=== PATIENT | female | born 2005 | race Two or more races ===

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

== ENCOUNTER 2024-01-06 13:52 | Emergency (ER) | payer MEDICAID, SELFPAY ==
[2024-01-06 14:10] VITALS: BP 156/91; PULSE 96; RESP 20; TEMP 36.6; O2SAT 100; BMI 34.3
--- NOTE | 2024-01-06 14:29 | ED_ITS ---
HPI - Female Genitourinary General Chief complaint: Urogenital-Female Stated complaint: heavy vaginal bleeding from control, dizzy Time Seen by Provider: 01/06/24 18:32 History of Present Illness HPI Narrative: Patient complains of unusual vaginal bleeding for herself, she is used 3 pads and a tampon today with some clots which is unusual She has had lesser vaginal bleeding for the last 6 weeks since getting a control device implanted She felt a little dizzy earlier but does not feel dizzy at all now, she had some cramping earlier no cramping or pain now no dysuria no bleeding from any source no rash no nausea or vomiting Related Data Previous Rx's Medication Instructions Recorded cephalexin 500 mg capsule 500 mg PO QID 7 days #28 caps 02/07/23 diphenhydramine HCl 25 mg capsule 25 mg PO TID PRN itching 5 days 02/07/23 (Benadryl) #15 caps doxycycline hyclate 100 mg capsule 100 mg PO BID 7 days #14 caps 02/07/23 acetaminophen 500 mg tablet 500 mg PO Q6H PRN fever or pain 09/17/23 (Tylenol Extra Strength) #30 tabs ibuprofen 400 mg tablet 400 mg PO TID PRN fever or pain 09/17/23 #30 tabs nirmatrelvir 300 mg (150 mg See Rx Instructions PO .COMPLEX 09/17/23 x2)-ritonavir 100 mg tablet,dose #30 ea pack (Paxlovid) Allergies Allergy/AdvReac Type Severity Reaction Status Date / Time No Known Allergies Allergy Verified 01/06/24 14:13 [facility] Past Medical History Source: nursing notes reviewed Social History Social History (System 10/31/23 @ 16:47 by Angely Grady) Alcohol intake: current Alcohol intake frequency: holidays/special occasions only Advance Directives: No Advance Directives Information Provided: No Physical Exam 2 Vital Signs: Vital Signs: Last Vital Signs Temp 98 F 01/06/24 14:10 Pulse 96 01/06/24 14:10 Resp 20 01/06/24 14:10 BP 156/91 H 01/06/24 14:10 Pulse Ox 100 01/06/24 14:10 O2 Del Method Nasal Cannula 01/06/24 14:10 BMI result Body Mass Index 34.3 General appearance no acute distress Eyes anicteric no pallor Pharynx mucous membranes moist voice normal Neck is supple Respiratory no distress Abdomen soft nontender no rebound no guarding The back no CVA tenderness Extremities range motion x4 Neuro gait and balance are normal, interaction comprehension expression normal, she was tested walking around the department and standing up to make sure she did not get dizzy, she has no dizziness with ambulation or standing up Course Course Course Narrative: This is an RME: Additional HPI, ROS, PE not included below will be deferred to primary provider. Patient is a 18-year-old female who presents emergency department for evaluation of vaginal bleeding, reportedly-constant since Nexplanon insertion 11/01/2023. She contacted the supervisor general office and they are unable to schedule her an appointment until next week. She is endorsing dizziness weakness, abdominal pain today with increase amount of bleeding in the presence of clots. Plan: Labs Well-appearing asymptomatic patient had hemoglobin and hematocrit normal, test negative At this point she has no dizziness no cramping and she is scheduled to follow with gynecology next week and is discharged Medical Decision Making Lab Data 01/06/24 14:41 01/06/24 14:41 Labs: Lab Results 01/06/24 Range/Units 14:41 WBC 6.8 (4.8-10.8) X10*3/uL RBC 4.97 (4.20-5.50) X10*6/uL Hgb 13.5 (12.0-16.0) g/dl Hct 41.9 (37.0-47.0) % MCV 84.3 (80.0-98.0) fL MCH 27.2 (27.0-33.0) pg MCHC 32.2 (31.0-35.0) g/dl RDW 13.0 (11.0-16.0) % Plt Count 269 (160-400) X10*3/uL MPV 11.2 (9.4-12.3) fL Immature Gran % (Auto) 0.3 (0.0-0.4) % Neut % (Auto) 57.6 (45-73) % Lymph % (Auto) 33.6 (20-40) % [place] % (Auto) 5.9 (2-11) % Eos % (Auto) 1.9 (0-4) % Baso % (Auto) 0.7 (0-2) % Lymph # (Auto) 2.3 (1.2-4.9) X10*3/uL [place] # (Auto) 0.4 (0.1-1.2) X10*3/uL Eos # (Auto) 0.1 (0.0-0.4) X10*3/uL Baso # (Auto) 0.1 (0.0-0.2) X10*3/uL Abs Immat Gran (auto) 0.02 (0.00-0.03) X10*3/uL Absolute Neuts (auto) 3.9 (2.0-8.3) x10*3/uL Absolute Nucleated RBC 0.000 (0.0-0.012) X10*3/uL Nucleated RBC % (auto) 0.0 (0.0-0.2) /100WBC Sodium 143 (135-145) mmol/L Potassium 3.8 (3.3-5.1) mmol/L Chloride 110 H (96-108) mmol/L Carbon Dioxide 26 (22-29) mmol/L Anion Gap 11 L (12-20) BUN 11 (9-16) mg/dL Creatinine 0.67 (0.5-1.4) mg/dL Estim Creat Clear Calc 147.3 Estimated GFR > 60 Random Glucose 109 (60-115) mg/dL Calcium 9.5 (8.4-10.2) mg/dL Total Bilirubin 0.2 (0.0-1.0) mg/dL AST 16 (5-31) U/L ALT 19 (0-31) U/L Alkaline Phosphatase 61 (39-117) U/L Total Protein 7.2 (6.5-8.0) g/dL Albumin 4.1 (3.5-5.0) g/dL Beta HCG, Quant < 2 mIU/mL Discharge Plan Discharge Clinical Impression: Vaginal bleeding Patient Disposition: Home, Self-Care Additional Instructions: Your test was negative Your blood count was normal you are not anemic Nothing worrisome on exam or blood test you are okay for all activities If nothing changes follow as scheduled with her ordering machine operator next week If bleeding gets heavier and you become dizzy or weak or any kind of severe pain or any worse condition or concerns you can return to the ER any time Prescriptions: No Action cephalexin 500 mg capsule 500 mg PO QID 7 Days Qty: 28 0RF doxycycline hyclate 100 mg capsule 100 mg PO BID 7 Days Qty: 14 0RF diphenhydramine HCl [Benadryl] 25 mg capsule 25 mg PO TID PRN (Reason: itching) 5 Days Qty: 15 0RF Paxlovid 300 mg (150 mg x 2)-100 mg tablets,dose pack See Rx Instructions PO .COMPLEX Qty: 30 0RF Rx Instructions: take TWO 150 mg tablets of nirmatrelvir with ONE 100 mg tablet of ritonavir twice daily for 5 days acetaminophen [Tylenol Extra Strength] 500 mg tablet 500 mg PO Q6H PRN (Reason: fever or pain) Qty: 30 0RF ibuprofen 400 mg tablet 400 mg PO TID PRN (Reason: fever or pain) Qty: 30 0RF Stand Alone Forms: Work/School Release
[2024-01-06 14:48] LABS: MANUAL DIFF FLAG NO
[2024-01-06 14:49] LABS: Basophils Absolute Auto 0.1 X10*3/uL (0.0-0.2); Basophils Percent Auto 0.7 % (0-2); Eosinophils Absolute Auto 0.1 X10*3/uL (0.0-0.4); Eosinophils Percent Auto 1.9 % (0-4); Hematocrit 41.9 % (37.0-47.0); Hemoglobin 13.5 g/dl (12.0-16.0); Imm Gran Abs Auto 0.02 X10*3/uL (0.00-0.03); Imm Gran Pct Auto 0.3 % (0.0-0.4); Lymphocytes Absolute Auto 2.3 X10*3/uL (1.2-4.9); Lymphocytes Percent Auto 33.6 % (20-40); Mean Corpuscular HGB Conc 32.2 g/dl (31.0-35.0); Mean Corpuscular Hemoglobin 27.2 pg (27.0-33.0); Mean Corpuscular Volume 84.3 fL (80.0-98.0); Mean Platelet Volume 11.2 fL (9.4-12.3); Monocytes Absolute Auto 0.4 X10*3/uL (0.1-1.2); Monocytes Percent Auto 5.9 % (2-11); Neutrophils Absolute Auto 3.9 x10*3/uL (2.0-8.3); Neutrophils Percent Auto 57.6 % (45-73); Platelet Count 269 X10*3/uL (160-400); Red Blood Count 4.97 X10*6/uL (4.20-5.50); White Blood Count 6.8 X10*3/uL (4.8-10.8)
[2024-01-06 15:19] LABS: Alanine Aminotransferase 19 U/L (0-31); Albumin Level 4.1 g/dL (3.5-5.0); Alkaline Phosphatase 61 U/L (39-117); Anion Gap 11 (12-20); Aspartate Amino Transferase 16 U/L (5-31); Bilirubin Total 0.2 mg/dL (0.0-1.0); Blood Urea Nitrogen 11 mg/dL (9-16); Calcium 9.5 mg/dL (8.4-10.2); Carbon Dioxide 26 mmol/L (22-29); Chloride 110 mmol/L (96-108); Creatinine Clr Calc Pharmacy 147.3; Estimated Glomerular Filt Rate > 60; Glucose Random 109 mg/dL (60-115); Potassium 3.8 mmol/L (3.3-5.1); Sodium 143 mmol/L (135-145); Total Protein 7.2 g/dL (6.5-8.0)
[2024-01-06 15:22] LABS: HCG Quantitative < 2 mIU/mL
--- NOTE | 2024-01-06 18:27 | ED.FEMALEGU ---
HPI - Female Genitourinary General Chief complaint: Urogenital-Female Stated complaint: heavy vaginal bleeding from control, dizzy Time Seen by Provider: 01/06/24 18:32 History of Present Illness HPI Narrative: 18-year-old female with the complaint that she is been bleeding intermittently since getting a control device approximately 6 weeks ago, today the bleeding increased and she is used 2 pads and a tampon and had some clots which is abnormal for her as well as some cramping She did feel dizzy earlier does not feel dizzy now and she has no cramping or pain at this moment No dysuria no abdominal pain no nausea or vomiting no fainting no rashes Related Data Previous Rx's Medication Instructions Recorded cephalexin 500 mg capsule 500 mg PO QID 7 days #28 caps 02/07/23 diphenhydramine HCl 25 mg capsule 25 mg PO TID PRN itching 5 days 02/07/23 (Benadryl) #15 caps doxycycline hyclate 100 mg capsule 100 mg PO BID 7 days #14 caps 02/07/23 acetaminophen 500 mg tablet 500 mg PO Q6H PRN fever or pain 09/17/23 (Tylenol Extra Strength) #30 tabs ibuprofen 400 mg tablet 400 mg PO TID PRN fever or pain 09/17/23 #30 tabs nirmatrelvir 300 mg (150 mg See Rx Instructions PO .COMPLEX 09/17/23 x2)-ritonavir 100 mg tablet,dose #30 ea pack (Paxlovid) Allergies Allergy/AdvReac Type Severity Reaction Status Date / Time No Known Allergies Allergy Verified 01/06/24 14:13 COUNT INCLUDES THE [facility] Past Medical History Source: nursing notes reviewed Social History Social History (System 10/31/23 @ 16:47 by Angely Grady) Alcohol intake: current Alcohol intake frequency: holidays/special occasions only Advance Directives: No Advance Directives Information Provided: No Physical Exam Vital Signs: Vital Signs: Last Vital Signs Temp 98 F 01/06/24 14:10 Pulse 96 01/06/24 14:10 Resp 20 01/06/24 14:10 BP 156/91 H 01/06/24 14:10 Pulse Ox 100 01/06/24 14:10 O2 Del Method Nasal Cannula 01/06/24 14:10 BMI result Body Mass Index 34.3 General appearance cheerful comfortable no acute distress Eyes anicteric no pallor The pharynx is clear with moist mucous membranes Neck is supple Respiratory no distress The abdomen is completely soft and nontender no rebound no guarding Extremities full range motion x4 Neuro gait and balance are normal interaction comprehension and expression are normal I tested her walking around the department and she did not get dizzy with standing up or walking Course Course Course Narrative: CBC was normal with normal hemoglobin and hematocrit HCG was negative Exam was very reassuring and patient is asymptomatic right now and was discharged diagnosis vaginal bleeding to follow with her credit adjuster on a scheduled appointment next week Medical Decision Making Lab Data 01/06/24 14:41 01/06/24 14:41 Labs: Lab Results 01/06/24 Range/Units 14:41 WBC 6.8 (4.8-10.8) X10*3/uL RBC 4.97 (4.20-5.50) X10*6/uL Hgb 13.5 (12.0-16.0) g/dl Hct 41.9 (37.0-47.0) % MCV 84.3 (80.0-98.0) fL MCH 27.2 (27.0-33.0) pg MCHC 32.2 (31.0-35.0) g/dl RDW 13.0 (11.0-16.0) % Plt Count 269 (160-400) X10*3/uL MPV 11.2 (9.4-12.3) fL Immature Gran % (Auto) 0.3 (0.0-0.4) % Neut % (Auto) 57.6 (45-73) % Lymph % (Auto) 33.6 (20-40) % [place] % (Auto) 5.9 (2-11) % Eos % (Auto) 1.9 (0-4) % Baso % (Auto) 0.7 (0-2) % Lymph # (Auto) 2.3 (1.2-4.9) X10*3/uL [place] # (Auto) 0.4 (0.1-1.2) X10*3/uL Eos # (Auto) 0.1 (0.0-0.4) X10*3/uL Baso # (Auto) 0.1 (0.0-0.2) X10*3/uL Abs Immat Gran (auto) 0.02 (0.00-0.03) X10*3/uL Absolute Neuts (auto) 3.9 (2.0-8.3) x10*3/uL Absolute Nucleated RBC 0.000 (0.0-0.012) X10*3/uL Nucleated RBC % (auto) 0.0 (0.0-0.2) /100WBC Sodium 143 (135-145) mmol/L Potassium 3.8 (3.3-5.1) mmol/L Chloride 110 H (96-108) mmol/L Carbon Dioxide 26 (22-29) mmol/L Anion Gap 11 L (12-20) BUN 11 (9-16) mg/dL Creatinine 0.67 (0.5-1.4) mg/dL Estim Creat Clear Calc 147.3 Estimated GFR > 60 Random Glucose 109 (60-115) mg/dL Calcium 9.5 (8.4-10.2) mg/dL Total Bilirubin 0.2 (0.0-1.0) mg/dL AST 16 (5-31) U/L ALT 19 (0-31) U/L Alkaline Phosphatase 61 (39-117) U/L Total Protein 7.2 (6.5-8.0) g/dL Albumin 4.1 (3.5-5.0) g/dL Beta HCG, Quant < 2 mIU/mL Discharge Plan Discharge Clinical Impression: Vaginal bleeding Patient Disposition: Home, Self-Care Additional Instructions: Your test was negative Your blood count was normal you are not anemic Nothing worrisome on exam or blood test you are okay for all activities If nothing changes follow as scheduled with her credit adjuster next week If bleeding gets heavier and you become dizzy or weak or any kind of severe pain or any worse condition or concerns you can return to the ER any time Prescriptions: No Action cephalexin 500 mg capsule 500 mg PO QID 7 Days Qty: 28 0RF doxycycline hyclate 100 mg capsule 100 mg PO BID 7 Days Qty: 14 0RF diphenhydramine HCl [Benadryl] 25 mg capsule 25 mg PO TID PRN (Reason: itching) 5 Days Qty: 15 0RF Paxlovid 300 mg (150 mg x 2)-100 mg tablets,dose pack See Rx Instructions PO .COMPLEX Qty: 30 0RF Rx Instructions: take TWO 150 mg tablets of nirmatrelvir with ONE 100 mg tablet of ritonavir twice daily for 5 days acetaminophen [Tylenol Extra Strength] 500 mg tablet 500 mg PO Q6H PRN (Reason: fever or pain) Qty: 30 0RF ibuprofen 400 mg tablet 400 mg PO TID PRN (Reason: fever or pain) Qty: 30 0RF Stand Alone Forms: Work/School Release Discharge Date/Time: 01/06/24 18:47
== END 2024-01-06 18:47 | disposition home or self-care (01) ==
PROVIDERS: Emergency Provider Internal Medicine
DX: N93.9 Abnormal uterine and vaginal bleeding, unspecified (principal)
CPT/HCPCS: 36415; 80053; 84702; 85025; 99281; 99283

== ENCOUNTER 2024-01-11 09:38 | Outpatient (REF) | payer MEDICAID, SELFPAY ==
[2024-01-11 11:58] LABS: Alanine Aminotransferase 32 U/L (0-31); Albumin Level 4.1 g/dL (3.5-5.0); Alkaline Phosphatase 77 U/L (39-117); Anion Gap 12 (12-20); Aspartate Amino Transferase 20 U/L (5-31); Bilirubin Total 0.3 mg/dL (0.0-1.0); Blood Urea Nitrogen 15 mg/dL (9-16); Calcium 9.2 mg/dL (8.4-10.2); Carbon Dioxide 24 mmol/L (22-29); Chloride 108 mmol/L (96-108); Cholesterol 242 mg/dL (<200); Estimated Glomerular Filt Rate > 60; Glucose Random 85 mg/dL (60-115); HDL Cholesterol 49 mg/dL (>40); LDL Cholesterol Calculated 156 mg/dL (<100); Potassium 4.3 mmol/L (3.3-5.1); Sodium 140 mmol/L (135-145); Total Protein 7.3 g/dL (6.5-8.0); Triglycerides 189 mg/dL (<150)
[2024-01-12 15:41] LABS: BV Int Neg Control Negative (Negative); BV Int Pos Control Positive (Positive)
[2024-01-13 14:59] LABS: RPR Rapid Plasma Reagin NON-REACTIVE (NON-REACTIVE)
[2024-01-14 18:33] LABS: HIV RNA PCR Qn Copies Not Detected Copies/mL; HIV RNA PCR Qn Log Copies Not Detected Log cps/mL
== END 2024-01-11 09:39 | disposition home or self-care (01) ==
LOC: HO.HHCL 09:38
PROVIDERS: Advanced Practice Midwife; Visit Provider Nurse Practitioner Family
DX: Z00.00 Encounter for general adult medical examination without abnormal findings (principal); N93.9 Abnormal uterine and vaginal bleeding, unspecified; Z71.3 Dietary counseling and surveillance
CPT/HCPCS: 36415; 80053; 80061; 86592; 87480; 87510; 87536; 87660; 87900

== ENCOUNTER 2024-03-25 15:34 | Emergency (ER) | payer MEDICAID, SELFPAY ==
[2024-03-25 16:17] VITALS: BP 145/93; PULSE 107; RESP 18; TEMP 36.3; O2SAT 99; BMI 33.7
--- NOTE | 2024-03-25 16:48 | ED.GENADULT ---
HPI - General Adult General Chief complaint: Upper Respiratory Symptoms Stated complaint: sore throat for the past week History of Present Illness HPI narrative: Patient left without completiont of treatment by ED provider. Related Data Previous Rx's ?Medication ?Instructions ?Recorded cephalexin 500 mg capsule 500 mg PO QID 7 days #28 caps 02/07/23 diphenhydramine HCl 25 mg capsule 25 mg PO TID PRN itching 5 days 02/07/23 (Benadryl) #15 caps doxycycline hyclate 100 mg capsule 100 mg PO BID 7 days #14 caps 02/07/23 acetaminophen 500 mg tablet 500 mg PO Q6H PRN fever or pain 09/17/23 (Tylenol Extra Strength) #30 tabs ibuprofen 400 mg tablet 400 mg PO TID PRN fever or pain 09/17/23 #30 tabs nirmatrelvir 300 mg (150 mg See Rx Instructions PO .COMPLEX 09/17/23 x2)-ritonavir 100 mg tablet,dose #30 ea pack (Paxlovid) Allergies Allergy/AdvReac Type Severity Reaction Status Date / Time No Known Allergies Allergy Verified 03/25/24 16:20 [facility] Social History Social History (System 10/31/23 @ 16:47 by Angely Grady) Alcohol intake: current Alcohol intake frequency: holidays/special occasions only Advance Directives: No Advance Directives Information Provided: No Physical Exam ED Vital Signs: Vital Signs - 24 hr 03/25/24 16:17 03/25/24 19:25 Temperature 97.3 F 97.7 F Pulse Rate 107 H 97 Respiratory Rate 18 16 Blood Pressure 145/93 H 129/84 Pulse Oximetry 99 100 Oxygen Delivery Method Room Air Room Air BMI result Body Mass Index 33.7 Course Course Course Narrative: RME: RME Done by MICHAEL Martinez. 19 yold female with no pmh presents to the ED for sore throat without any drooling, change in voice, chest pain, shortness of breath. Strep or SARS ordered. Oral exam normal. Medical Decision Making Lab Data Labs: Lab Results 03/25/24 Range/Units 18:29 Influenza Type A (PCR) NEGATIVE (Negative) Influenza Type B (PCR) NEGATIVE (Negative) RSV RNA Qual (PCR) NEGATIVE (Negative) SARS-CoV-2 RNA (RT-PCR) NEGATIVE (Negative) S. pyogenes GrpA ROSALIND Negative (Negative) Discharge Plan Discharge Clinical Impression: Upper respiratory infection Patient Disposition: Left W/O Completing Treatment Prescriptions: No Action cephalexin 500 mg capsule 500 mg PO QID 7 Days Qty: 28 0RF doxycycline hyclate 100 mg capsule 100 mg PO BID 7 Days Qty: 14 0RF diphenhydramine HCl [Benadryl] 25 mg capsule 25 mg PO TID PRN (Reason: itching) 5 Days Qty: 15 0RF Paxlovid 300 mg (150 mg x 2)-100 mg tablets,dose pack See Rx Instructions PO .COMPLEX Qty: 30 0RF Rx Instructions: take TWO 150 mg tablets of nirmatrelvir with ONE 100 mg tablet of ritonavir twice daily for 5 days acetaminophen [Tylenol Extra Strength] 500 mg tablet 500 mg PO Q6H PRN (Reason: fever or pain) Qty: 30 0RF ibuprofen 400 mg tablet 400 mg PO TID PRN (Reason: fever or pain) Qty: 30 0RF Discharge Date/Time: 03/25/24 19:41
[2024-03-25 18:50] LABS: IDNOW Serial# 08D9AD1C; Strep A Nucleic Acid Negative (Negative)
[2024-03-25 19:15] LABS: Influenza A PCR NEGATIVE (Negative); Influenza B PCR NEGATIVE (Negative); Resp Syncy Virus RNA Qual PCR NEGATIVE (Negative); SARS COV2 PCR INHOUSE NEGATIVE (Negative)
[2024-03-25 19:25] VITALS: BP 129/84; PULSE 97; RESP 16; TEMP 36.5; O2SAT 100
== END 2024-03-25 19:41 | disposition left against medical advice (07) ==
LOC: HO.ED 19:43
PROVIDERS: Physician Assistant; Emergency Provider Emergency Medicine
DX: J06.9 Acute upper respiratory infection, unspecified (principal); J02.9 Acute pharyngitis, unspecified
CPT/HCPCS: 0241U; 87651; 99281; 99283

== ENCOUNTER 2024-11-28 14:40 | Outpatient (REF) | payer MEDICAID, SELFPAY ==
--- OUTSIDE RECORDS SUMMARY | 2024-11-28 15:49 | XMS_ITS | Clinical Summary ---
Author Organization [facility] Address [address] [place] [address] Care Team Providers Care Press Maintainer Name Role Phone Unavailable Primary Care Provider Unavailabl e Social History Tobacco Use Types Packs/Day Years Used Date Smoking Tobacco: Never Assessed Sex and Gender Information Value Date Recorded Sex Assigned at Not on file Gender Identity Not on file Sexual Orientation Not on file Last Filed Vital Signs Vital Sign Reading Time Taken Comments Blood Pressure - - Pulse - - Temperature - - Respiratory Rate - - Oxygen Saturation - - Inhaled Oxygen Concentration - - Weight 81.6 kg (180 lb) 05/02/2023 3:56 PM EDT Height 160 cm (5' 3 ) 05/02/2023 3:56 PM EDT Body Mass Index 31.89 05/02/2023 3:56 PM EDT Plan of Treatment Health Maintenance Due Date Last Done Comments Gonorrhea/Chlamydia Screening 2004 Varicella Vaccines (1 of 2 - 13+ 2-dose series) 02/17/2017 HPV Vaccines (1 - 3-dose series) 02/17/2019 Annual Well Child Visit (3-2 1 years old) 09/26/2022 Depression Screening 09/26/2022 HIV Screening 09/26/2022 Hepatitis C Screening 09/26/2022 Social Influencers of Health Screening 09/26/2022 DTaP,Tdap,and Td Vaccines (1 - Tdap) 02/17/2023 Hepatitis B Vaccines (1 of 3 - 19+ 3-dose series) 02/17/2023 COVID-19 Vaccine ( - 2023-2 5 season) 2024 Influenza Vaccine (#1) 2024 HIB Vaccines Aged Out No longer eligi ble based on patient's age to complete this topic Hepatitis A Vaccines Aged Out No long er eligible based on patient's age to complete this topic IPV Vaccines Aged Out No longer eligi ble based on patient's age to complete this topic MMR Vaccines Aged Out No longer eligi ble based on patient's age to complete this topic Meningococcal ACWY Vaccine Aged Out N o longer eligible based on patient's age to complete this topic Pneumococcal Vaccine: Pediat rics (0 to 5 Years) and At-Risk Patients (6 to 64 Years) Aged Out No longer eligible b ased on patient's age to complete this topic RSV Immunization Patients Un danielle 20 months Aged Out No longer eligible b ased on patient's age to complete this topic
--- OUTSIDE RECORDS SUMMARY | 2024-11-28 15:49 | XMS_ITS | Encounter Summary ---
Author Organization [employer] Address [address] [place] [address] [address] [address] Care Team Providers Care Horticulture Teacher Name Role Phone Coco Wells NP Primary Care Provider [phone] Reason for Referral * Imaging (Urgent) - Authorized Specialty Diagnoses / Procedures Referred By Contac t Referred To Contact Radiology Diagnoses Dyspareunia, female Procedures Us Pelvis complete Rosmery Baumann CNM [address] [place] [address] Phone: tel: fax: [address] Phone: tel: fax: Referral ID Status Reason Start Date Expiration Date V isits Requested Visits Authorized [id number] Authorized 11/28/2024 11/28/2025 1 1 * Imaging (Urgent) - Authorized Specialty Diagnoses / Procedures Referred By Contac t Referred To Contact Radiology Diagnoses Dyspareunia, female Procedures US Pelvis Transvaginal Rosmery Baumann CNM [address] [place] [address] Phone: tel: fax: [address] Phone: tel: fax: Referral ID Status Reason Start Date Expiration Date V isits Requested Visits Authorized [id number] Authorized 11/28/2024 11/28/2025 1 1 * Consultation (Routine) - Authorized Specialty Diagnoses / Procedures Referred By Raysa clark Referred To Contact Nutrition Diagnoses Weight gain BMI 35.0-35.9,adult Rosmery Baumann CNM [address] [place] [address] Phone: tel: fax: Referral ID Status Reason Start Date Expiration Date Visits Requested Visits Authorized [id number] Authorized Consult and Treat 11/28/2024 11/28/2025 1 1 Reason for Visit * Reason Comments Gynecologic Exam Encounter Details Date Type Department Care Team (Latest Contact Info) Description 11/28/2024 9:30 AM EST Procedure Visit [facility] [address] [place] [address] Rosmery Baumann CNM [address] [place] [address] Dyspareunia, female (Primary Dx); Weight gain; Vaginal discharge; Screening examination for venereal disease; BMI 35.0-35.9,adult Social History Tobacco Use Types Packs/Day Years Used Date Smoking Tobacco: Never Passive Smoke Exposure: Never Smokeless Tobacco: Never Alcohol Use Standard Drinks/Week Comments Never 0 (1 standard drink = 0.6 oz pur e alcohol) special occasions Depression Answer Date Recorded Patient Health Questionnaire-9 Score 3 10/28/2023 Patient Health Questionnaire-9 Score 3 10/28/2023 Last PHQ-9: Questionnaire Data Not on file 0 10/28/2023 Housing Stability Answer Date Recorded What is your housing situation today? I have ruben sue 08/20/[address] you li ve. Do you have problems with any of the following? None of the above 08/20/2023 Food Insecurity Answer Date Recorded Within the past 12 months, y ou worried that your food would run out before you got money to buy more: Never True 08/20/2023 Within the past 12 months,th e food you bought just didn't last and you didn't have enough money to get more: Never True Transportation Answer Date Recorded In the past 12 months, has l ack of transportation kept you from medical appts, meetings, work or from getting things needed for daily living? No 08/20/2023 Utilities Answer Date Recorded In the past 12 months, has t he electric, gas, oil or water company threatened to shut off services in your home? Already shut Off 10/28/2023 Depression Answer Date Recorded Patient Health Questionnaire-2 Score 1 10/28/2023 Comments No Sex and Gender Information Value Date Recorded Sex Assigned at Female 08/23/2022 10:22 AM EDT Legal Sex Female 10:22 AM EDT Gender Identity Female 12/17/2022 3:48 PM EST Sexual Orientation Straight 12/17/2022 3: 48 PM EST documented as of this encounter Last Filed Vital Signs Vital Sign Reading Time Taken Comments Blood Pressure 137/93 11/28/2024 9:40 AM EST Pulse 106 11/28/2024 9:40 AM EST Temperature 36.3 ??C (97.4 ??F) 11/28/2024 9:40 AM ES T Respiratory Rate 16 11/28/2024 9:40 AM EST Oxygen Saturation 100% 11/28/2024 9:40 AM EST Inhaled Oxygen Concentration - - Weight 93.9 kg (207 lb) 11/28/2024 9:40 AM EST Height 162.6 cm (5' 4 ) 11/28/2024 9:40 AM EST Body Mass Index 35.53 11/28/2024 9:40 AM EST documented in this encounter Progress Notes * Rosmery Baumann CNM - 11/28/2024 9:30 AM EST Subjective Patient ID: Zaida Son is a 19 y.o. female who presents for TEXTILE EXAMINER visit Asks about pap - mother had either cervical dysplasia or endometrial hyperplasia and wanted Stuart check to see what testing she needs. Notes pain with sex that has persisted since last visit with me. Pain is more near introitus, affects enjoyment of sex. Does note dryness with sex as well. Mcc AMAB partner, unchanged since lastvisit. Treated for bacterial vaginosis 11/2023. Feels like she still has bacterial vaginosis, notes discharge. Bacterial vaginosis/vulvovaginal candidiasis/trichomonas negative 12/2023. GC/Ch, HIV and syphilis negative 10/2023. Rx'd oral contraceptive pill for AUB with Nexplanon 12/2023. Took as directed, then stopped. More orless amenorrheic since then. Happy with Nexplanon other than weight gain. Works with children, active at job. 24h recall: coffee/fruit, egg sandwich from [employer], frozen meal for lunch, pork chops/rice for dinner. Last TSH 2022. Interested in nutrition services. Received HBV vaccine, 2/3 HPV vaccines. Eligible for 3rd dose. She will get this at our pharmacy. 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 No other GI symptoms, feels better today. Patient seen in conjunction with Prabha Li, JUNIOR student. I was present for and confirmed all pertinent elements in the history, exam, assessment of the patient, and the plan of care, and agree with all findings. Review of Systems Genitourinary: Positive for dyspareunia and vaginal discharge. Negative for dysuria, pelvic pain, vaginal bleeding and vaginal pain. Objective BP (!) 137/93 (BP Location: Left arm, Patient Position: Sitting, BP Cuff Size: Large adult) [id number] Temp 97.4 ??F (36.3 ??C) (Temporal) Resp 16 Ht 5' 4 (1.626 m) Wt 207 lb (93.9 kg) SpO2 100% BMI 35.53 kg/m?? Physical Exam Exam conducted with a recruiting assistant present (Rosmery Baumann CNM). Constitutional: Appearance: Normal appearance. Genitourinary: General: Normal vulva. Labia: Right: No rash, tenderness, lesion or injury. Left: No rash, tenderness, lesion or injury. Vagina: Normal. No signs of injury and foreign body. No vaginal discharge, erythema, tenderness, bleeding, lesions or prolapsed vaginal otero. Cervix: Normal. No cervical motion tenderness, discharge, friability, lesion, erythema, cervical bleeding or eversion. Uterus: Normal. Adnexa: Right adnexa normal and left adnexa normal. Right: No mass, tenderness or fullness. Left: No mass, tenderness or fullness. Comments: Some tenderness of introitus, and along muscles just in vagina Skin: Comments: Implant palpable in left arm, site well healed Neurological: Mental Status: She is alert. Psychiatric: Mood and Affect: Mood normal. Behavior: Behavior normal. Assessment/Plan Diagnoses and all orders for this visit: Dyspareunia, female - US Pelvis Transvaginal; Future - Us Pelvis complete; Future Seems more muscular and related to dryness with sex than uterine, will order ultrasound as precaution. Given lubricant samples to try. If not helpful and ultrasound normal, could consider trial of pelvic floor PT. Weight gain - TSH W/Reflex to FT4; Future - Referral to Nutrition Therapy; Future Try to find some time during lunch to walk/move body daily. No issues affording food. Work on eating more fresh fruits/vegetables, whole grains, lean protein. Referred to ada accommodation consultant. Vaginal discharge - POCT fern test, vaginal fluid manually resulted Negative wet mount. Will send Gonorrhea/Chlamydia as due. Report if itching/irritation. Screening examination for venereal disease - Chlamydia/N. Gonorrhoeae RNA, TMA, Urogenitial BMI 35.0-35.9,adult - Referral to Nutrition Therapy; Future Try to find some time during lunch to walk/move body daily. No issues affording food. Try to cut out sweetened beverages, processed foods. Work on eating more fresh fruits/vegetables, whole grains, lean protein. Referred to ada accommodation consultant. Happy with Nexplanon for now. May remove any time, remove/replace by 5 y from insertion date. documented in this encounter Plan of Treatment Upcoming Encounters Date Type Department Care Team (Late st Contact Info) Description 12/03/2024 11:30 AM EST Nurse Only [facility] [address] [place] [id number] 02/04/2025 10:30 AM EDT Office Visit [facility] [address] [place] [address] Coco Wells NP [address] [place] [address] Scheduled Orders Name Type Priority Associated Diagnoses Orde r Schedule TSH W/Reflex to FT4 Lab Routine Weight gain Expected: 11/28/2024 (Approximate), Expires: 11/28/2025 Chlamydia/N. Gonorrhoeae RNA, TMA, Urogenitial Microbiology Routine Screening examination for venereal disease Ordered: 11/28/2024 US Pelvis Transvaginal Imaging Urgent Dyspareunia, female Expected: 11/28/2024, Expires: 11/28/2025 Us Pelvis complete Imaging Urgent Dyspareunia, female Expected: 11/28/2024, Expires: 11/28/2025 Scheduled Referrals Name Type Priority Associated Diagnoses Orde r Schedule Referral to Nutrition Therapy Outpatient Referral Routine Weight gain BMI 35.0-35.9,adult Expected: 11/28/2024 (Approximate), Expires: 11/28/2025 documented as of this encounter Procedures Procedure Name Priority Date/Time Associated Diagnosis Comments POCT WET MOUNT/ENEDINA Routine 11/28/2024 10 :16 AM EST Vaginal discharge documented in this encounter Results * POCT fern test, vaginal fluid manually resulted (11/28/2024 10:16 AM EST) ENEDINA Prep Negative Comment:pH 4.5, neg whiff, n eg clue, neg trich, neg yeast, neg wbc Vaginal Fluid Vaginal structure / Unknown 11/28/2024 10:16 AM EST Impressions Rosmery Baumann CNM - 11/28/2024 10:16 AM EST normal Rosmery Baumann CNM POINT OF CARE TEST ENTER/ EDIT ORDERABLES Final Result documented in this encounter Visit Diagnoses Diagnosis Dyspareunia, female- Primary Weight gain Other symptoms concerning nutrition, metabolism, and development Vaginal discharge Leukorrhea, not specified as infective Screening examination for venereal disease BMI 35.0-35.9,adult documented in this encounter Additional Health Concerns Assessment Noted Time PHQ-9 Depression Total Score: 3 10/28/19 24 3:12 PM EST documented as of this encounter Care Teams Horticulture Teacher Relationship Specialty Start Date End Date Coco Wells NP [address] [place] [id number] PCP - General Family Medicine 06/26/24 documented as of this encounter
--- OUTSIDE RECORDS SUMMARY | 2024-11-28 15:49 | XMS_ITS | Encounter Summary ---
Author Organization [employer] Address [address] [facility] [address] [place] [address] Care Team Providers Care Gear Hobber Name Role Phone Joy Mancini Primary Care Provider [phone] Coco Wells NP Primary Care Provider [phone] Encounter Details Date Type Department Care Team (Late st Contact Info) Description 10/31/2023 Orders Only [facility] [address] [place] [address] Joy Mancini FNP [address] [place] [address] Dietary counseling (Primary Dx) Social History Tobacco Use Types Packs/Day Years [...] PM EST documented as of this encounter Plan of Treatment Upcoming Encounters Date Type Department Care Team (Late st Contact Info) Description 12/03/2024 11:30 AM EST Nurse Only [facility] [address] [place] [phone] 02/04/2025 10:30 AM EDT Office Visit [facility] [address] [place] [phone] Coco Wells NP [address] [place] [address] documented as of this encounter Procedures Procedure Name Priority Date/Time Associated Diagnosis Comments LIPID PANEL, STANDARD Routine 01/11/2024 9:40 AM EDT Dietary counseling documented in this encounter Results * (ABNORMAL) Lipid Panel, Standard (01/11/2024 9:40 AM EDT) Triglycerides 189(H) <150 mg/dL [facility] Comment:Desirable Triglyceri de: less than 90 mg/dLBorderline High Triglyceride: 90-129 mg/dLHigh Triglyceride: greater than 130 mg/dL Cholesterol 242(H) <200 mg/dL [facility] Comment:Desirable Cholestero l: less than 170 mg/dLBorderline High Cholesterol: 170-199 mg/dLHigh Cholesterol: greater than 200 mg/dL LDL Cholesterol Calculated 156(H) <100 mg/dL [facility] Comment:Desirable LDL: less than 110 mg/dLBorderline LDL: 110-129 mg/dLHigh LDL: greater than or equal to 130 mg/dL HDL Cholesterol 49 >40 mg/dL [facility] Comment:Desirable HDL: great er than 45 mg/dLBorderline HDL: 40-45 mg/dLLow HDL: less than 40 mg/dL Note: This HDL assay may give artificially low results in patients with liver disease. Blood Venous blood specimen / Unknown 01/11/2024 9:40 AM EDT 01/11/2024 11:11 AM EDT Joy CANEL[facility] BLOOD ORDERABLES Final Resu lt [facility] [address] [place] [address] [phone] documented in this encounter Visit Diagnoses Diagnosis Dietary counseling- Primary Dietary surveillance and counseling documented in this encounter Additional Health Concerns Assessment Noted Time PHQ-9 Depression Total Score: 3 10/28/19 24 3:12 PM EST documented as of this encounter Care Teams Gear Hobber Relationship Specialty Start Date End Date Joy Mancini FNP [address] [place] [address] PCP - General Family Medicine 04/21/23 06/25/24 Coco Wells NP [address] [place] [address] PCP - General Family Medicine 06/26/24 documented as of this encounter
--- OUTSIDE RECORDS SUMMARY | 2024-11-28 15:49 | XMS_ITS | Clinical Summary ---
Author Organization [employer] Address [address] [facility] 7t [place] [address] Care Team Providers Care Power Generating Plant Operator Name Role Phone Haileeronnie Coco EUGENE Primary Care Provider [phone] Allergies No known active allergies Medications montelukast (Singulair) 10 MG tabletIndication s:Mild intermittent asthma, unspecified whether complicated Take 1 tablet (10 mg) by mouth in the evening. 30 tablet 11 3 Active SUMAtriptan (Imitrex) 25 MG tabletIndication s:Frequent headaches Take 1 tablet (25 mg) by mouth 1 (one) time if needed for migraine for up to 1 dose. May repeat dose once in 2 hours if no relief. Do not exceed 2 doses in 24 hours. 9 tablet 3 Active Additional Information Patient not taking.Reported on 04/21/2023 Alcohol Swabs (Alcohol Prep) padsIndications: Dizziness 1 each if needed (dizziness). 100 each 1 3 Active Additional Information Patient not taking.Reported on 04/21/2023 Lancets 33G miscIndications: Dizziness 1 each if needed (Dizziness). 100 each 1 3 Active Additional Information Patient not taking.Reported on 04/21/2023 Blood Glucose Monitoring Suppl (FreeStyle Lite) deviceIndication s:Dizziness Inject under the skin if needed (Dizziness). Test daily before all meals/snacks and once before bedtime. 1 each 3 Active Additional Information Patient not taking.Reported on 04/21/2023 Diclofenac Sodium 1 % gel APPLY 4 G TOPICALLY 2 TIMES DAILY. 3 Active Banophen 25 MG capsule TAKE 1 CAPSULE BY MOUTH THREE TIMES A DAY NEEDED FOR ITCHING FOR 5 DAYS 3 Active HPV 9-valent (Gardasil-9) suspension prefilled syringe vaccine prefilled syringe 2nd dose 10/2023 0.5 mL 1 4 Active ibuprofen 800 MG tablet 1 tablet every 8 hours x 7 days. Take with food 21 tablet 4 Active levonorgestrel-e thinyl estradiol (Aviane, Alesse, Lessina) 0.1-20 MG-MCG tabletIndication s: control counseling Take 1 tablet by mouth in the morning. Take one tablet daily, skip last week (placebo week) and start a 2nd pack immediately 28 tablet 1 4 Active albuterol 108 (90 Base) MCG/ACT inhalerIndicatio ns:Mild persistent asthma with exacerbation Inhale 2 puffs every 6 (six) hours if needed for wheezing. 18 g 2 4 09/25/20 25 Active fluticasone-salm eterol (Advair) 115-21 MCG/ACT inhalerIndicatio ns:Persistent asthma with undetermined severity Inhale 2 puffs in the morning and at bedtime. Rinse mouth with water after use to reduce aftertaste and incidence of candidiasis. Do not swallow. 12 g 11 4 09/25/20 25 Active albuterol 108 (90 Base) MCG/ACT inhalerIndicatio ns:Exacerbation of asthma, unspecified asthma severity, unspecified whether persistent Inhale 2 puffs every 6 (six) hours if needed for wheezing. 18 g 2 4 09/26/20 25 Active Active Problems Problem Noted Date Diagnosed Date Asthma exacerbation 09/26/2024 Assessment & Plan (09/26/2024 4:03 PM EST): Prednisone for 5 days Albuterol inhaler Q 4-6hrs Mild persistent asthma with exacerbation 024 Assessment & Plan (09/26/2024 4:00 PM EST): Patient educated to avoid triggers Prednisone for 5 days Albuterol inhaler Q 4-6 hrs Persistent asthma with undetermined severity 11/2023 Assessment & Plan (09/26/2024 4:01 PM EST): Start advir and montelukast once feeling better, f/u with PCP control counseling 04/21/2023 Overview (04/21/2023): Sexually active, 1AMAB partner Using ILIA Assessment & Plan (04/21/2023 4:32 PM EDT): Taking as prescribed No side effects Refills sent Followup PRN Dizziness 03/15/2023 Overview (04/21/2023): Ddx: Hypoglycemia, anemia during periods, orthostatic hypotension, dehydration CBC WNL Encouraged pt to drink 8 bottles of water/day Dizziness resolves immediately after eating. Rx glucometer and supplies . Educated pt to check sugars as soon as she feels dizzy, eat a snack and then check 15 minutes later Recommended she keep small snacks on her in case she gets dizzy Continue OCP to improve menses Safety precautions discussed: rise slowly from lying position, avoid heavy equipment at gym and driving if she starts to feel dizzy. Assessment & Plan (04/21/2023 4:30 PM EDT): Orthostatic pressures WNL Improved Continue drinking water, recommend 8 bottles/day Monitor sugars if she is noticing dizziness when she is not eating Followup PRN Frequent headaches 03/15/2023 Mild intermittent asthma 12/17/2022 Encounters Date Type Department Care Team Description 11/28/2024 9:30 AM EST Procedure Visit [facility] [address] [place] [phone] Rosmery Baumann CNM Dyspareunia, female (Primary Dx); Weight gain; Vaginal discharge; Screening examination for venereal disease; BMI 35.0-35.9,adult 11/28/2024 Travel 11/21/2024 Travel 11/15/2024 Telephone [facility] [address] [place] [address] Coco Wells NP 09/26/2024 Telephone [facility] [address] [place] [address] Lyndsay Helm, RN 09/25/2024 Orders Only [facility] [address] [place] [address] Shraddha Hahn NP Mild persistent asthma with exacerbation (Primary Dx); Persistent asthma with undetermined severity 09/24/2024 2:40 PM EST Office Visit [facility] [address] [place] [address] Julissa Batres MD Cough in adult patient (Primary Dx); Persistent asthma with undetermined severity; Exacerbation of asthma, unspecified asthma severity, unspecified whether persistent 09/24/2024 Travel from Last 3 Months Immunizations Name Administration Dates Next Due DTaP, 5 pertussis antigens 03/26/2008,,2004,07/21,2004 HPV 9-Valent 11/01/2023,02/09/2023 Hep A, ped/adol, 2 dose 09/16/2009,2009 Hep B, Adolescent or Pediatric 2004,2003,2004 Hib (HbOC) 01/18/2005,2004,2004 IPV 03/26/2008, 4,2004,05/06 Influenza injectable quadriv alent preservative free 10/28/2023 Influenza, Split (incl. carlin fied surface antigen) 12/25/2013,07/18/2012 Influenza, live, intranasal 11/18/2010,1 ,11/14/2009,08/02 MMR 03/26/2008,06/07/2005 Meningococcal B, Omv 04/01/2021 Meningococcal Polysaccharide A,C,Y,W-135 TT Conjugate 02/09/2023 Pneumococcal Conjugate PCV 7 03/26/2008,04/14/20 07,01/18/2005 Tdap 02/09/2023 Varicella 03/26/2008,06/07/2005 Family History Medical History Relation Name Comments Hypertension Maternal Grandfather Hypertension Maternal Grandmother Relation Name Status Comments Maternal Grandfather Maternal Grandmother Social History Tobacco Use Types Packs/Day Years [...] t he electric, gas, oil or water [employer] threatened to shut off services in your home? Already shut Off 10/28/2023 Depression Answer Date Recorded Patient Health Questionnaire-2 Score 1 10/28/2023 Comments No Sex and Gender Information Value Date Recorded Sex Assigned at Female 08/23/2022 10:22 AM EDT Legal Sex Female 10:22 AM EDT Gender Identity Female 12/17/2022 3:48 PM EST Sexual Orientation Straight 12/17/2022 3: 48 PM EST Last Filed Vital Signs Vital Sign Reading [...] Mass Index 35.53 11/28/2024 9:40 AM EST Plan of Treatment Upcoming Encounters Date Type Department Care Team (Late st Contact Info) Description 12/03/2024 11:30 AM EST Nurse Only [facility] [address] [place] [address] 02/04/2025 10:30 AM EDT Office Visit [facility] [address] [place] [address] Coco Wells NP [address] [place] [address] Health Maintenance Due Date Last Done Comments Alcohol/Substance Use Screening 2016 Pneumococcal Vaccine: Pediatrics (0 to 5 Years) and At-Risk Patients (6 to 49) Years) (1 of 2 - PCV) 02/17/2023 03/26/2008, 04/14/2007, 01/18/2005 HPV Vaccines (3 - 3-dose series) 01/24/2024 11/01/2023, 02/09/2023 COVID-19 Vaccine ( - season) 2024 Influenza Vaccine (#1) 2024 , 12/25/2013, 07/18/2012, Additional history exists Chlamydia and Gonorrhea Screening 10/28/2024 10/28/2023, 05/13/2023 Depression Screening 10/28/2024 10/28/2023, 10/28/19 24 SDOH Screening 10/28/2024 10/28/2023 Family Planning (PISQ) 11/28/2025 11/28/2024 Tobacco Screening 11/28/2025 11/28/2024 DTaP/Tdap/Td Vaccines (7 - Td or Tdap) 02/09/2033 02/09/2023, 03/26/2008, 04/14/2007, Additional history exists Zoster Vaccines (1 of 2) 02/17/2054 RSV Patients and Patients Aged 60 years or older (1 - 1-dose 75+ series) 02/17/2079 Hepatitis B Vaccines Completed 2004, 2004, 2004 HIB Vaccines Aged Out 01/18/2005, 06/25, 2004 No longer eligible based on patient's age to complete this topic IPV Vaccines Completed 03/26/2008, 120 10/2003, 2004, Additional history exists Hepatitis A Vaccines Completed 09/16/2009, 02/19/20 09 Meningococcal Vaccine Completed 02/09/2023 HIV Screening Completed 05/13/2023 Hepatitis C Screening Completed 05/13/2023 RSV under 20 months Aged Out No longe r eligible based on patient's age to complete this topic Rotavirus Vaccines Aged Out No longer eligible based on patient's age to complete this topic Procedures Procedure Name Priority Date/Time Associated Diagnosis Comments POCT WET MOUNT/ENEDINA Routine 11/28/2024 10 :16 AM EST Vaginal discharge POCT INFLUENZA B (ID NOW RAPID MOLECULAR) Routine 09/24/2024 3:02 PM EST Cough in adult patient POCT INFLUENZA A (ID NOW RAPID MOLECULAR) Routine 09/24/2024 3:02 PM EST Cough in adult patient POC HAWK ID NOW STREP A Routine 09/24/2024 3:01 PM EST Cough in adult patient POCT RAPID COVID ANTIGEN Routine 09/24/2024 3:01 PM EST Cough in adult patient CHLAMYDIA/N. GONORRHOEAE RNA, TMA, UROGENITAL Routine 10/28/2023 3:15 PM EST Routine health maintenance HEPATITIS C ANTIBODY Routine 05/13/2023 4:36 PM EDT Acute vaginitis HIV 1 RNA, QUANTITATIVE REAL TIME PCR Routine 05/13/2023 4:36 PM EDT Acute vaginitis from Last 3 Months or Most Recently Relevant to Health Maintenance Results * POCT fern test, vaginal fluid manually resulted (11/28/2024 10:16 AM EST) ENEDINA Prep Negative Comment:pH 4.5, neg whiff, n eg clue, neg trich, neg yeast, neg wbc Vaginal Fluid Vaginal structure / Unknown 11/28/2024 10:16 AM EST Lonnys Rosmery Baumann, RADHA - 11/28/2024 10:16 AM EST normal Rosmery Baumann CNM POINT OF CARE TEST ENTER/ EDIT ORDERABLES Final Result * Influenza B (ID NOW Rapid Molecular) (09/24/2024 3:02 PM EST) Influenza B Negative Negative, Indeterminate [facility] Swab 09/24/2024 3:02 PM EST Julissa Salazar MD POINT OF CARE TEST EN TER/EDIT ORDERABLES Final Result Performing Organization Address [facility] Co de Phone Number [facility] [address] [place] [phone] * Influenza A (ID NOW Rapid Molecular) (09/24/2024 3:02 PM EST) [facility] Influenza A Negative Negative, Indeterminate [facility] Swab 09/24/2024 3:02 PM EST Julissa Salazar MD POINT OF CARE TEST EN TER/EDIT ORDERABLES Final Result Performing Organization Address [facility] Co de Phone Number [facility] [address] [place] [phone] * POCT rapid strep A manually resulted (09/24/2024 3:01 PM EST) [facility] Rapid Strep A Screen Negative Negative, None Detected Swab 09/24/2024 3:01 PM EST Julissa Salazar MD POINT OF CARE TEST EN TER/EDIT ORDERABLES Final Result * POCT Rapid COVID Ag (09/24/2024 3:01 PM EST) [facility] Rapid COVID Ag Negative Swab 09/24/2024 3:01 PM EST Julissa Salazar MD POINT OF CARE TEST EN TER/EDIT ORDERABLES Final Result * Chlamydia/N. Gonorrhoeae RNA, TMA, Urogenitial (10/28/2023 3:15 PM EST) [facility] CT PCR NOT DETECTED Not Detect. [facility] Comment:A not detected test result does not exclude the possibilityof infection because test results can be affected byimproper specimen collection, concurrent antibiotic therapy,or the number of organisms in the specimen which may bebelow the sensitivity of the test. As with many diagnostictests, results from the Xpert CT/NG assay should beinterpreted in conjunction with other laboratory andclinical data available to the clinician.Xpert CT/NG performance has not been evaluated in patientsless than 14 years of age. The assay should not be used forthe evaluationof suspected sexual abuse or for other medico-legalindications. Additional testing is recommended in anycircumstance when false positive or false negative resultscould lead to adverse medical, social or psychologicalconsequences. NG PCR NOT DETECTED Not Detect. [facility] Comment:A not detected test result does not exclude the possibilityof infection because test results can be affected byimproper specimen collection, concurrent antibiotic therapy,or the number of organisms in the specimen which may bebelow the sensitivity of the test. As with many diagnostictests, results from the Xpert CT/NG assay should beinterpreted in conjunction with other laboratory andclinical data available to the clinician.Xpert CT/NG performance has not been evaluated in patientsless than 14 years of age. The assay should not be used forthe evaluationof suspected sexual abuse or for other medico-legalindications. Additional testing is recommended in anycircumstance when false positive or false negative resultscould lead to adverse medical, social or psychologicalconsequences. Urine, Random 10/28/2023 3:1 5 PM EST 10/28/2023 3:52 PM EST Narrative [facility] - 10/29/2023 1:12 PM EST Urine Joy Mancini CHEMISTRY LAB INSTRUCTOR LAB MICROBIOLOGY - GENERAL VERNA HOLLIS Final Result Performing Organization Address [facility]/ZIP Co de Phone Number [facility] [address] [place] [phone] * Hepatitis C Ab (05/13/2023 4:36 PM EDT) Pathologist [facility] Hepatitis C Antibody Nonreactive Nonreactive [facility] Comment:Antibodies to HCV no t detected; does not exclude early acuteHCV infection. Blood 05/13/2023 4:36 PM EDT 05/13/2023 5:34 PM EDT Myesha Carpio CHEMISTRY LAB INSTRUCTOR LAB BLOOD ORDERABLES Final Res ult Performing Organization Address [facility] Co de Phone Number [facility] [address] [place] [phone] * HIV-1 RNA, Quantitative, Real-Time PCR (05/13/2023 4:36 PM EDT) [facility] HIV RNA PCR Qn Copies NOT DETECTED NOT DETECTED copies/mL [facility] HIV RNA PCR Qn Log Copies NOT DETECTED NOT DETECTED [facility] Comment:Result Units: Log co pies/mLThis test was performed using Real-Time Polymerase ChainReaction.Reportable Range: 20 copies/mL to 10,000,000 copies/mL(1.30 log copies/mL to 7.00 log copies/mL).THIS TEST WAS PERFORMED AT:[facility] [place] [phone] HURT MD Blood Venous blood specimen / Unknown 05/13/2023 4:36 PM EDT 05/13/2023 5:34 PM EDT Myesha Carpio CHEMISTRY LAB INSTRUCTOR LAB BLOOD ORDERABLES Final Res ult Performing Organization Address City/[facility]/ZIP Co de Phone Number [facility] [address] [place] [phone] [phone] from Last 3 Months or Most Recently Relevant to Health Maintenance [place] [place] [address] C3 Care Teams Power Generating Plant Operator Relationship Specialty Start Date End Date Coco Wells NP [address] [place] [phone] PCP - General Family Medicine 06/26/24
--- OUTSIDE RECORDS SUMMARY | 2024-11-28 15:49 | XMS_ITS | Encounter Summary ---
Author Organization [employer] Address [address] [facility] 7t [place] [address] Care Team Providers Care Pharmacy Intake Coordinator Name Role Phone Coco Wells NP Primary Care Provider [phone] Encounter Details Date Type Department Care Team ([facility] st Contact Info) Description 11/15/2024 Telephone [facility] [address] [place], [place] [phone] Coco Wells NP [address] [place] [address] Social History Tobacco Use Types Packs/Day Years [...] PM EST documented as of this encounter Miscellaneous Notes * Telephone Encounter - Mar Duran RN - 11/15/2024 1:50 PM EST Called pt. RE: Incoming pt. Portal message. Pt. States that she wants to be checked over all because she is now sexually active. By TELEVIS[employer] ANCHOR. Pt states she has pain during intercourse and has a HX of BV. Pt. States she still has the same pain even after taking antibiotics. No drainage or foul odor but, pain with sexual intercourse. Pt. States that she also has never had a Pap smear. Pt. Also wants to make appt. With new PCP. TP appt. Appts. Made for [employer]LE[employer] on 11/28/24 at 930am with Rosmery PEREZ appt. Made for 02/04/25 at 1030am with new PCP Coco Wells NP. documented in this encounter Plan of Treatment Upcoming Encounters Date Type Department Care Team (Late st Contact Info) Description 12/03/2024 11:30 AM EST Nurse Only [facility] [address] [place] [address] 02/04/2025 10:30 AM EDT Office Visit [facility] [address] [place] [address] Coco Wells NP [address] [place] [address] documented as of this encounter Visit Diagnoses Not on filedocumented in this encounter Additional Health Concerns Assessment Noted Time PHQ-9 Depression Total Score: 3 10/28/19 3:12 PM EST documented as of this encounter Care Teams Pharmacy Intake Coordinator Relationship Specialty Start Date End Date Coco Wells NP [address] [place] [address] PCP - General Family Medicine 06/26/24 documented as of this encounter
--- OUTSIDE RECORDS SUMMARY | 2024-11-28 15:49 | XMS_ITS | Encounter Summary ---
Author Organization [employer] Address [address] [place] [address] 7t [place] [address] Care Team Providers Care Airworthiness Inspector Name Role Phone Coco Wells EUGENE Primary Care Provider [phone] Encounter Details Date Type Department Care Team (Latest Contact Info) Description 11/21/2024 Travel Social History Tobacco Use Types Packs/Day Years [...] EST Nurse Only [facility] [address] [place] [address] 02/04/2025 10:30 AM EDT Office Visit [facility] [address] [place] [phone] Coco Wells NP [address] [place] [address] documented as of this encounter Visit Diagnoses Not on filedocumented in this encounter Additional Health Concerns Assessment Noted Time PHQ-9 Depression Total Score: 3 10/28/19 24 3:12 PM EST documented as of this encounter Care Teams Airworthiness Inspector Relationship Specialty Start Date End Date Coco Wells NP [address] [place] [address] PCP - General Family Medicine 06/26/24 documented as of this encounter
--- OUTSIDE RECORDS SUMMARY | 2024-11-28 15:49 | XMS_ITS | Encounter Summary ---
Author Organization [employer] Address [address] [place] [address] 7 [place] [address] Care Team Providers Care Slumber Room Attendant Name Role Phone EnriqueCarmen lambert Lila GEL COATER Primary Care Provider [phone] Joy Mancini GEL COATER Primary Care Provider [phone] Coco Wells TUBE PUSHER Primary Care Provider [phone] Reason for Visit * Reason Onset Date Comments Results 12/28/2022 Encounter Details Date Type Department Care Team (Late st Contact Info) Description 12/28/[address] [facility] [address] [place] [address] Name, MD Mike [address] [place] [address] Results Social History Tobacco Use Types Packs/Day Years Used Date Smoking Tobacco: Never Passive Smoke Exposure: Never Smokeless Tobacco: Never Alcohol Use Standard Drinks/Week Comments Never 0 (1 standard drink = 0.6 oz pur e alcohol) Depression Answer Date Recorded Patient Health Questionnaire-9 [...] Patient Health Questionnaire-2 Score 1 10/28/2023 Comments Unknown Sex and Gender Information Value Date Recorded Sex Assigned at Female 08/23/2022 10:22 AM EDT Legal Sex Female 10:22 AM EDT Gender Identity Female 12/17/2022 3:48 PM EST Sexual Orientation Straight 12/17/2022 3: 48 PM EST COVID-19 Exposure Response Date Recorded In the last 10 days, have yo u been in contact with someone who was confirmed or suspected to have Coronavirus/COVID-19? No / Unsure 04/21/2023 3:35 PM EDT documented as of this encounter Miscellaneous Notes * Telephone Encounter - Cristel Hernandez RN - 12/28/2022 10:24 AM EST TC returned to pt's mom at [phone] regarding message below.Provider sent normal lab letter on 12/21/22. Mom informed test results normal per letter. Mom verbalized understanding. Mom reports she has been trying to get a new pt appt. RN informed mom, message would be sent to new pt specialist Mari, and she should receive call and if she does not hear back in a few days to call [facility] and ask for the Walk In Nurses. Mom verbalized understanding. Mom to F/U as needed. Tc from pt mom requesting lab results, States pt was seen on 12/17/22 @ [facility]. Please contact at [phone] Bengali * Telephone Encounter - Soas Stephens - 12/28/2022 10:17 AM EST Tc from pt mom requesting lab results, States pt was seen on 12/17/22 @ [facility]. Please contact at [phone] Bengali documented in this encounter Plan of Treatment Upcoming Encounters Date Type Department Care Team ([facility] st Contact Info) Description 12/03/2024 11:30 AM EST Nurse Only [facility] [address] [place] [address] 02/04/2025 10:30 AM EDT Office Visit [facility] [address] [place] [address] Coco Wells NP [address] [place] [address] documented as of this encounter Visit Diagnoses Not on filedocumented in this encounter Care Teams Slumber Room Attendant Relationship Specialty Start Date End Date Carmen Nunez FNP PCP - General Family Medicine 02/09/23 04/20/23 Joy Mancini FNP [address] [place] [phone] PCP - General Family Medicine 04/21/23 06/25/24 Coco Wells NP [address] [place] [phone] PCP - General Family Medicine 06/26/24 documented as of this encounter
--- OUTSIDE RECORDS SUMMARY | 2024-11-28 15:49 | XMS_ITS | Encounter Summary ---
Author Organization [employer] Address [address] [place] [address] 7t [place] [address] Care Team Providers Care Roller Billet Mill Name Role Phone Coco Wells EUGENE Primary Care Provider [phone] Encounter Details Date Type Department Care Team (Latest Contact Info) Description 11/28/2024 Travel Social History Tobacco Use Types Packs/Day [...] Description 12/03/2024 11:30 AM EST Nurse Only [facility] [address] [place] [address] 02/04/2025 10:30 AM EDT Office Visit [facility] [address] [place] [phone] Coco Wells NP [address] [place] [address] documented as of this encounter Visit Diagnoses Not on filedocumented in this encounter Additional Health Concerns Assessment Noted Time PHQ-9 Depression Total Score: 3 10/28/19 24 3:12 PM EST documented as of this encounter Care Teams Roller Billet Mill Relationship Specialty Start Date End Date Coco Wells NP [address] [place] [address] PCP - General Family Medicine 06/26/24 documented as of this encounter
[2024-11-29 04:52] LABS: CT PCR NOT DETECTED (Not Detect.); NG PCR NOT DETECTED (Not Detect.)
== END 2024-11-28 14:41 | disposition home or self-care (01) ==
LOC: HO.HHCLNP 14:40
PROVIDERS: Visit Provider Advanced Practice Midwife
DX: Z11.3 Encounter for screening for infections with a predominantly sexual mode of transmission (principal)
CPT/HCPCS: 87491; 87591

== ENCOUNTER 2024-12-14 15:43 | Outpatient (REF) | payer MEDICAID, SELFPAY ==
--- NOTE | ~2024-12-14 | US_ITS ---
EXAMINATION: US PELVIS CLINICAL INFORMATION: Dyspareunia COMPARISON: None available. TECHNIQUE: Ultrasound of the pelvis is performed using both transabdominal and transvaginal transducers along with Doppler. Transvaginal imaging is performed due to inadequate visualization transabdominally. FINDINGS: Uterus: The uterus is anteverted and measures 6.8 x 2.8 x 5.3 cm. The cervix appears normal. There is a tiny amount of anechoic fluid in the endocervical canal, nonspecific. The double wall endometrial thickness is 3 mm. It is uniform. The uterus is smooth in contour and has normal myometrial echogenicity. No visible fibroid. Adnexa: Both ovaries are visualized. There is normal color flow to the adnexa. There is no ovarian torsion. There is no pelvic ascites or fluid collection. There are no adnexal masses. Right ovary measures 3.0 x 2.9 x 1.9 cm. Volume = 8.7 mL. Normal sonographic appearance. 1.4 cm dominant follicle. Left ovary measures 3.8 x 2.5 x 1.5 cm. Volume = 7.5 mL. Normal sonographic appearance. US/US pelvic and transvaginal IMPRESSION: Normal pelvic ultrasound. Electronically signed by: Car Driver MD 12/14/2024 04:42 PM [facility]
--- OUTSIDE RECORDS SUMMARY | 2024-12-14 15:46 | XMS_ITS | Encounter Summary ---
Author Organization [employer] Address [address] [place] [address] [place], [place] [address] Care Team Providers Care Basting Puller Name Role Phone Coco Wells NP Primary Care Provider [phone] Reason for Referral * Imaging (Urgent) - Authorized Specialty Diagnoses / Procedures Referred By Contac t Referred To Contact Radiology Diagnoses Dyspareunia, female Procedures Us Pelvis complete Rosmery Baumann CNM [address] [place] [address] Phone: tel: fax: [address] Phone: tel: fax: Referral ID Status Reason Start Date Expiration Date V isits Requested Visits Authorized [id number] Authorized 11/28/2024 11/28/2025 1 1 * Imaging (Urgent) - Authorized Specialty Diagnoses / Procedures Referred By Contac t Referred To Contact Radiology Diagnoses Dyspareunia, female Procedures US Pelvis Transvaginal Rosmery Baumann CNM [address] [place] [address] Phone: tel: fax: [address] Phone: tel: fax: Referral ID Status Reason Start Date Expiration Date V isits Requested Visits Authorized [id number] Authorized 11/28/2024 11/28/2025 1 1 * Consultation (Routine) - Authorized Specialty Diagnoses / Procedures Referred By Raysa clark Referred To Contact Nutrition Diagnoses Weight gain BMI 35.0-35.9,adult Rosmery Baumann CNM [address] [place] [address] Phone: tel: fax: Referral ID Status Reason Start Date Expiration Date Visits Requested Visits Authorized [id number] Authorized Consult and Treat 11/28/2024 11/28/2025 1 1 Reason for Visit * Reason Comments Gynecologic Exam Encounter Details Date Type Department Care Team (Latest Contact Info) Description 11/28/2024 9:30 AM EST Procedure Visit [facility] [address] [place] [address] Rosmery Baumann CNM [address] [place] [address] Dyspareunia, female (Primary Dx); Weight gain; Vaginal [...] a 19 y.o. female who presents for DIRECTOR FINANCIAL ANALYSIS visit Asks about pap - mother had either cervical dysplasia or endometrial hyperplasia and wanted Stuart check to see what testing she needs. Notes pain with sex that has persisted since last visit with me. Pain is more near introitus, affects enjoyment of sex. Does note dryness with sex as well. Half-Way AMAB partner, unchanged since lastvisit. Treated for [...] Position: Sitting, BP Cuff Size: Large adult) [id number] Temp 97.4 ??F (36.3 ??C) (Temporal) Resp 16 Ht 5' 4 (1.626 m) Wt 207 lb (93.9 kg) SpO2 100% BMI 35.53 kg/m?? Physical Exam Exam conducted with a copy manager present (Rosmery Baumann CNM). Constitutional: Appearance: Normal [...] fruits/vegetables, whole grains, lean protein. Referred to high wire artist. Vaginal discharge - POCT fern test, vaginal [...] fruits/vegetables, whole grains, lean protein. Referred to high wire artist. Happy with Nexplanon for now. May remove any time, remove/replace by 5 y from insertion date. documented in this encounter Plan of Treatment Upcoming Encounters Date Type Department Care Team (Late st Contact Info) Description 01/01/2025 3:00 PM EDT Nutrition [facility] DIABETES/NUTRITION [address] [place] [address] [place] [address] 02/04/2025 10:30 AM EDT Office Visit [facility] [address] [place] [address] Coco Wells NP [address] [place] [address] Scheduled Orders Name Type Priority Associated Diagnoses Orde r Schedule TSH W/Reflex to FT4 Lab Routine Weight gain Expected: 11/28/2024 (Approximate), Expires: 11/28/2025 US Pelvis Transvaginal Imaging Urgent Dyspareunia, female Expected: 11/28/2024, Expires: 11/28/2025 Us Pelvis complete Imaging Urgent Dyspareunia, female Expected: 11/28/2024, Expires: 11/28/2025 Scheduled Referrals Name Type Priority Associated Diagnoses Orde r Schedule Referral to Nutrition Therapy Outpatient Referral Routine Weight gain BMI 35.0-35.9,adult Expected: 11/28/2024 (Approximate), Expires: 11/28/2025 documented as of this encounter Procedures Procedure Name Priority Date/Time Associated Diagnosis Comments CHLAMYDIA/N. GONORRHOEAE RNA, TMA, UROGENITAL Routine 11/28/2024 10:25 AM EST Screening examination for venereal disease POCT WET MOUNT/ENEDINA Routine 11/28/2024 10 :16 AM EST Vaginal discharge documented in this encounter Results * Chlamydia/N. Gonorrhoeae RNA, TMA, Urogenitial (11/28/2024 10:25 AM EST) CT PCR NOT DETECTED Not Detect. [facility] Comment:A not detected test result [...] psychologicalconsequences. NG PCR NOT DETECTED Not Detect. [facility] Comment:A not detected test result [...] lead to adverse medical, social or psychologicalconsequences. Swab (Vaginal Swab) 11/28/2024 10:25 AM EST 11/28/2024 2:43 PM EST Narrative [facility] - 11/29/2024 4:53 AM EST Vaginal Rosmery Baumann CNM LAB MICROBIOLOGY - GENERA L ORDERABLES Final Result [facility] [address] [place] [phone] * POCT fern test, vaginal fluid manually [...] documented as of this encounter Care Teams Basting Puller Relationship Specialty Start Date End Date Coco Wells NP [address] [place] [address] PCP - General Family Medicine 06/26/24 documented as of this encounter
--- OUTSIDE RECORDS SUMMARY | 2024-12-14 15:46 | XMS_ITS | Encounter Summary ---
Author Organization [employer] Address [address] [place] [address] [address] [place] [address] Care Team Providers Care Field Marketing Team Leader Name Role Phone Coco Wells EUGENE Primary Care Provider [phone] Encounter Details Date Type Department Care Team [...] Info) Description 01/01/2025 3:00 PM EDT Nutrition [facility] DIABETES/NUTRITION [address] [place] [address] Hailey Mcpherson, TULIO [address] [place] [address] 02/04/2025 10:30 AM EDT Office Visit [facility] [address] [place] [address] Coco Wells NP [address] [place] [address] documented as of this encounter Visit Diagnoses Not on filedocumented in this encounter Additional Health Concerns Assessment Noted Time PHQ-9 Depression Total Score: 3 10/28/19 3:12 PM EST documented as of this encounter Care Teams Field Marketing Team Leader Relationship Specialty Start Date End Date Coco Wells NP [address] [place] [address] PCP - General Family Medicine 06/26/24 documented as of this encounter
--- OUTSIDE RECORDS SUMMARY | 2024-12-14 15:46 | XMS_ITS | Clinical Summary ---
Author Organization [facility] Address [address] [place] [address] Care Team Providers Care Bareback Rider Name Role Phone Unavailable Primary Care Provider Unavailabl e Social History Tobacco Use Types Packs/Day Years Used Date Smoking Tobacco: Never Assessed Comments Unknown Sex and Gender Information Value Date Recorded Sex Assigned at Not on file Legal Sex Female 3:21 AM EST Gender Identity Not on file Sexual Orientation [...] HPV Vaccines (1 - 3-dose series) 02/17/2019 Meningococcal B Vacine (1 of 2 - Standard) 2020 Annual Well Child Visit (3-2 1 years [...]
--- OUTSIDE RECORDS SUMMARY | 2024-12-14 15:46 | XMS_ITS | Encounter Summary ---
Author Organization [employer] Address [address] [place] [address] [address] [place] [address] Care Team Providers Care Health Policy Analyst Name Role Phone Carmen Nunez Lila JOB DEVELOPMENT SPECIALIST Primary Care Provider [phone] Joy Mancini JOB DEVELOPMENT SPECIALIST Primary Care Provider [phone] Coco Wells HELMET BINDER Primary Care Provider [phone] Reason for Visit * Reason Onset Date Comments Results 12/28/2022 Encounter Details Date Type Department Care Team (Late st Contact Info) Description 12/28/2022 Telephone [facility] MEDICINE [address] [place] [address] Name, MD Mike [address] [place] [address] Results Social History Tobacco Use Types Packs/Day [...] EST TC returned to pt's mom at [phone] regarding message below.Provider sent normal lab letter on 12/21/22. Mom informed test results normal per letter. Mom verbalized understanding. Mom reports she has been trying to get a new pt appt. RN informed mom, message would be sent to new pt specialist Mari, and she should receive call and if she does not hear back in a few days to call [facility] and ask for the Walk In Nurses. Mom verbalized understanding. Mom to F/U as needed. Tc from pt mom requesting lab results, States pt was seen on 12/17/22 @ [facility]. Please contact at [phone] Jamaican * Telephone Encounter - Sosa Stephens - 12/28/2022 10:17 AM EST Tc from pt mom requesting lab results, States pt was seen on 12/17/22 @ [facility]. Please contact at [phone] Jamaican documented in this encounter Plan of Treatment Upcoming Encounters Date Type Department Care Team ([facility] st Contact Info) Description 01/01/2025 3:00 PM EDT Nutrition [facility] DIABETES/NUTRITION [address] [place] [address] Hailey Mcpherson, TULIO [address] [place] [address] 02/04/2025 10:30 AM EDT Office Visit [facility] MEDICINE [address] [place] [address] Coco Wells NP [address] [place] [address] documented as of this encounter Visit Diagnoses Not on filedocumented in this encounter Care Teams Health Policy Analyst Relationship Specialty Start Date End Date Carmen Nunez FNP PCP - General Family Medicine 02/09/23 04/20/23 Joy Mancini FNP [address] [place] [address] PCP - General Family Medicine 04/21/23 06/25/24 Coco Wells NP [address] [place] [phone] PCP - General Family Medicine 06/26/24 documented as of this encounter
--- OUTSIDE RECORDS SUMMARY | 2024-12-14 15:46 | XMS_ITS | Clinical Summary ---
Author Organization [employer] Address [address] [facility] 7t [place] [address] Care Team Providers Care Brake Lining Finisher Asbestos Name Role Phone Haileeronnie Coco EUGENE Primary Care Provider [phone] Allergies No known active allergies Medications montelukast [...] Encounters Date Type Department Care Team Description 12/04/[address] NUTRITION APPT REQUEST 11/29/2024 Travel 11/28/2024 9:30 AM EST Procedure Visit [address] [address] Rosmery Baumann CNM Dyspareunia, female (Primary Dx); Weight gain; Vaginal discharge; Screening examination for venereal disease; BMI 35.0-35.9,adult 11/28/2024 Travel 11/21/2024 Travel 11/15/[address] [address] Coco Wells NP 09/26/2024 Telephone [facility] [address] [place], [place] [phone] Lyndsay Helm RN 09/25/2024 Orders Only [facility] [address] [place] [address] Shraddha Hahn NP Mild persistent asthma with exacerbation (Primary Dx); Persistent asthma with undetermined severity 09/24/2024 2:40 PM EST Office Visit [facility] [address] [place] [address] Julissa Batres MD Cough in adult patient [...] Info) Description 01/01/2025 3:00 PM EDT Nutrition [facility] DIABETES/NUTRITION [address] [place] [address] Hailey Mcpherson, TULIO [address] [place] [address] 02/04/2025 10:30 AM EDT Office Visit [facility] [address] [place], [place] [phone] Coco Wells NP [address] [place], [place] [phone] Health Maintenance Due Date Last Done Comments Alcohol/Substance Use Screening 2016 Pneumococcal Vaccine: Pediatrics (0 to 5 Years) and At-Risk Patients (6 to 49) Years) (1 of 2 - PCV) 02/17/2023 03/26/2008, 04/14/2007, 01/18/2005 HPV Vaccines (3 - 3-dose series) 01/24/2024 11/01/2023, 02/09/2023 COVID-19 Vaccine ( season) 2024 Influenza Vaccine (#1) 2024 , 12/25/2013, 07/18/2012, Additional history exists Depression Screening 10/28/2024 10/28/2023, 10/28/19 24 SDOH Screening 10/28/2024 10/28/2023 Chlamydia and Gonorrhea Screening 11/28/2025 11/28/2024, 10/28/2023, 05/13/2023 Family Planning (PISQ) 11/28/2025 11/28/2024 Tobacco Screening [...] complete this topic IPV Vaccines Completed 03/26/2008, 1210/2003, 2004, Additional history exists Hepatitis A Vaccines Completed 09/16/2009, 02/19/20 Meningococcal Vaccine Completed 02/09/2023 HIV Screening Completed [...] 3:01 PM EST Cough in adult patient HEPATITIS C ANTIBODY Routine 05/13/2023 4:36 PM EDT Acute vaginitis HIV 1 RNA, QUANTITATIVE REAL TIME PCR Routine 05/13/2023 4:36 PM EDT Acute vaginitis from Last 3 Months or Most Recently Relevant to Health Maintenance Results * Chlamydia/N. Gonorrhoeae RNA, TMA, Urogenitial (11/28/2024 10:25 AM EST) CT PCR NOT DETECTED Not Detect. [facility] Comment:A not detected test result [...] psychologicalconsequences. NG PCR NOT DETECTED Not Detect. [facility] Comment:A not detected test result [...] AM EST 11/28/2024 2:43 PM EST Narrative [facility] - 11/29/2024 4:53 AM EST Vaginal Rosmery MORELOS LAB MICROBIOLOGY - GENERA L ORDERABLES Final Result Performing Organization Address [facility]/ZIP Co de Phone Number [facility] [address] [place] [phone] * POCT fern test, vaginal fluid manually resulted (11/28/2024 10:16 AM EST) ENEDINA Prep Negative Comment:pH 4.5, neg whiff, n eg clue, neg trich, neg yeast, neg wbc Vaginal Fluid Vaginal structure / Unknown 11/28/2024 10:16 AM EST Lonnys Rosmery Baumann, RADHA - 11/28/2024 10:16 AM EST normal us Rosmery Baumann CNM POINT OF CARE TEST ENTER/ EDIT ORDERABLES Final Result * Influenza B (ID NOW Rapid Molecular) (09/24/2024 3:02 PM EST) Pathologist [facility] Influenza B Negative Negative, Indeterminate [facility] Swab 09/24/2024 3:02 PM EST us Julissa Salazar MD POINT OF CARE TEST EN TER/EDIT ORDERABLES Final Result Performing Organization Address [facility] Co de Phone Number [facility] [address] [place] [phone] * Influenza A (ID NOW Rapid Molecular) (09/24/2024 3:02 PM EST) Pathologist [facility] Influenza A Negative Negative, Indeterminate [facility] Swab 09/24/2024 3:02 PM EST us Julissa Salazar MD POINT OF CARE TEST EN TER/EDIT ORDERABLES Final Result Performing Organization Address [facility] Co de Phone Number [facility] [address] [place] [phone] * POCT rapid strep A manually resulted (09/24/2024 3:01 PM EST) [facility] Rapid Strep A Screen Negative Negative, None Detected Swab 09/24/2024 3:01 PM EST Julissa Salazar MD POINT OF CARE TEST EN TER/EDIT ORDERABLES Final Result * POCT Rapid COVID Ag (09/24/2024 3:01 PM EST) [facility] Rapid COVID Ag Negative Swab 09/24/2024 3:01 PM EST Julissa Salazar MD POINT OF CARE TEST EN TER/EDIT ORDERABLES Final Result * Hepatitis C Ab (05/13/2023 4:36 PM EDT) [facility] Hepatitis C Antibody Nonreactive Nonreactive [facility] Comment:Antibodies to HCV no t detected; does not exclude early acuteHCV infection. Blood 05/13/2023 4:36 PM EDT 05/13/2023 5:34 PM EDT Myesha Carpio [facility] LAB BLOOD ORDERABLES Final Res ult [facility] [address] [place] [phone] * HIV-1 RNA, Quantitative, Real-Time PCR (05/13/2023 4:36 PM EDT) [facility] HIV RNA PCR Qn Copies NOT DETECTED NOT DETECTED copies/mL [facility] HIV RNA PCR Qn Log Copies NOT DETECTED NOT DETECTED [facility] Comment:Result Units: Log co pies/mLThis test was performed using Real-Time Polymerase ChainReaction.Reportable Range: 20 copies/mL to 10,000,000 copies/mL(1.30 log copies/mL to 7.00 log copies/mL).THIS TEST WAS PERFORMED AT:[facility] [place] [phone] HURT MD Blood Venous blood specimen / Unknown 05/13/2023 4:36 PM EDT 05/13/2023 5:34 PM EDT Myesha Carpio BATCH ROOM TECHNICIAN LAB BLOOD ORDERABLES Final Res ult [facility] [address] [place] [address] [phone] from Last 3 Months or Most Recently Relevant to Health Maintenance [place] [address] [place] [address] C3 Care Teams Brake Lining Finisher Asbestos Relationship Specialty Start Date End Date Coco Wells NP [address] [place] [phone] PCP - General Family Medicine 06/26/24
--- OUTSIDE RECORDS SUMMARY | 2024-12-14 15:46 | XMS_ITS | Encounter Summary ---
Author Organization [employer] Address [address] [facility] 7t [place] [address] Care Team Providers Care Geometrician Name Role Phone Joy Mancini Primary Care Provider [phone] Coco Wells NP Primary Care Provider [phone] Encounter Details Date Type Department Care Team (Late st Contact Info) Description 10/31/2023 Orders Only [facility] MED & PEDS [address] [place] [address] Joy Mancini FNP [address] [place] [address] Dietary counseling (Primary Dx) Social History Tobacco [...] Info) Description 01/01/2025 3:00 PM EDT Nutrition [facility] DIABETES/NUTRITION [address] [place] [address] [place] [address] 02/04/2025 10:30 AM EDT Office Visit [facility] MEDICINE [address] [place] [address] Coco Wells NP [address] [place] [address] documented as of this encounter Procedures Procedure Name Priority Date/Time Associated Diagnosis Comments LIPID PANEL, STANDARD Routine 01/11/2024 9:40 AM EDT Dietary counseling documented in this encounter Results * (ABNORMAL) Lipid Panel, Standard (01/11/2024 9:40 AM EDT) Triglycerides 189(H) <150 mg/dL [facility] Comment:Desirable Triglyceri de: less than 90 mg/dLBorderline High Triglyceride: 90-129 mg/dLHigh Triglyceride: greater than 130 mg/dL Cholesterol 242(H) <200 mg/dL [facility] Comment:Desirable Cholestero l: less than 170 mg/dLBorderline High Cholesterol: 170-199 mg/dLHigh Cholesterol: greater than 200 mg/dL LDL Cholesterol Calculated 156(H) <100 mg/dL [facility] Comment:Desirable LDL: less than 110 mg/dLBorderline LDL: 110-129 mg/dLHigh LDL: greater than or equal to 130 mg/dL HDL Cholesterol 49 >40 mg/dL [facility] Comment:Desirable HDL: great er than 45 mg/dLBorderline HDL: 40-45 mg/dLLow HDL: less than 40 mg/dL Note: This HDL assay may give artificially low results in patients with liver disease. Blood Venous blood specimen / Unknown 01/11/2024 9:40 AM EDT 01/11/2024 11:11 AM EDT Joy CANELA LAB BLOOD ORDERABLES Final Resu lt [facility] [address] [place] [phone] documented in this encounter Visit Diagnoses Diagnosis Dietary counseling- Primary Dietary surveillance and counseling documented in this encounter Additional Health Concerns Assessment Noted Time PHQ-9 Depression Total Score: 3 10/28/19 24 3:12 PM EST documented as of this encounter Care Teams Geometrician Relationship Specialty Start Date End Date Joy Mancini FNP [address] [place] [address] PCP - General Family Medicine 04/21/23 06/25/24 Coco Wells NP [address] [place] [address] PCP - General Family Medicine 06/26/24 documented as of this encounter
--- OUTSIDE RECORDS SUMMARY | 2024-12-14 15:46 | XMS_ITS | Encounter Summary ---
Author Organization [employer] Address [address] [facility] 7t [place] [address] Care Team Providers Care Nursing Director Name Role Phone Coco Wells NP Primary Care Provider [phone] Encounter Details Date Type Department Care Team ([facility] st Contact Info) Description 11/15/2024 Telephone [facility] MEDICINE [address] [place], [place] [phone] Coco Wells NP [address] [place] [address] Social History Tobacco Use Types Packs/Day Years [...] because she is now sexually active. By THERMAL SURFACING MACHINE OPERATOR. Pt states she has pain during intercourse and has a HX of BV. Pt. States she still has the same pain even after taking antibiotics. No drainage or foul odor but, pain with sexual intercourse. Pt. States that she also has never had a Pap smear. Pt. Also wants to make appt. With new PCP. TP appt. Appts. Made for THERMAL SURFACING MACHINE OPERATOR on 11/28/24 at 930am with Rosmery PEREZ appt. Made for 02/04/25 at 1030am with new PCP Coco Wells NP. documented in this encounter Plan of Treatment Upcoming Encounters Date Type Department Care Team (Late st Contact Info) Description 01/01/2025 3:00 PM EDT Nutrition [facility] DIABETES/NUTRITION [address] [place] [address] [place] [address] 02/04/2025 10:30 AM EDT Office Visit [facility] MEDICINE [address] [place] [address] Coco Wells NP [address] [place] [address] documented as of this encounter Visit Diagnoses Not on filedocumented in this encounter Additional Health Concerns Assessment Noted Time PHQ-9 Depression Total Score: 3 10/28/19 24 3:12 PM EST documented as of this encounter Care Teams Nursing Director Relationship Specialty Start Date End Date Coco Wells NP [address] [place] [address] PCP - General Family Medicine 06/26/24 documented as of this encounter
--- OUTSIDE RECORDS SUMMARY | 2024-12-14 15:46 | XMS_ITS | Encounter Summary ---
Author Organization [employer] Address [address] [place] [address] 7t [place] [address] Care Team Providers Care Registration Manager Name Role Phone Coco Wells EUGENE Primary Care Provider [phone] Encounter Details Date Type Department Care Team [...] Info) Description 01/01/2025 3:00 PM EDT Nutrition [facility] DIABETES/NUTRITION [address] [place] [address] Hailey Mcpherson, TULIO [address] [place] [address] 02/04/2025 10:30 AM EDT Office Visit [facility] MEDICINE [address] [place] [address] Coco Wells NP [address] [place] [address] documented as of this encounter Visit Diagnoses Not on filedocumented in this encounter Additional Health Concerns Assessment Noted Time PHQ-9 Depression Total Score: 3 10/28/19 3:12 PM EST documented as of this encounter Care Teams Registration Manager Relationship Specialty Start Date End Date Coco Wells NP [address] [place] [address] PCP - General Family Medicine 06/26/24 documented as of this encounter
--- OUTSIDE RECORDS SUMMARY | 2024-12-14 15:46 | XMS_ITS | Encounter Summary ---
Author Organization [employer] Address [address] [place] [address] [address]t [place] [address] Care Team Providers Care Rewinder Name Role Phone Coco Wells EUGENE Primary Care Provider [phone] Encounter Details Date Type Department Care Team (Latest Contact Info) Description 11/29/2024 Travel Social History Tobacco Use Types Packs/Day [...] Info) Description 01/01/2025 3:00 PM EDT Nutrition [facility] DIABETES/NUTRITION [address] [place] [address] Hailey Mcpherson, TULIO [address] [place] [address] 02/04/2025 10:30 AM EDT Office Visit [facility] MEDICINE [address] [place] [address] Coco Wlels NP [address] [place] [address] documented as of this encounter Visit Diagnoses Not on filedocumented in this encounter Additional Health Concerns Assessment Noted Time PHQ-9 Depression Total Score: 3 10/28/19 3:12 PM EST documented as of this encounter Care Teams Rewinder Relationship Specialty Start Date End Date Coco Wells NP [address] [place] [address] PCP - General Family Medicine 06/26/24 documented as of this encounter
--- OUTSIDE RECORDS SUMMARY | 2024-12-14 15:46 | XMS_ITS | Encounter Summary ---
Author Organization [employer] Address [address] [facility] 7[address] [place] [address] Care Team Providers Care Wrapping Machine Tender Name Role Phone Haileeronnie Coco KNIGHT Primary Care Provider [phone] Reason for Visit * Reason Onset Date Comments NUTRITION APPT REQUEST 12/04/2024 Encounter Details Date Type Department Care Team ([facility] st Contact Info) Description 12/04/2024 Telephone [facility] MEDICINE [address] [place], [place] [phone] Hailey Mc[address] [place] [address] NUTRITION APPT REQUEST Social History Tobacco Use Types Packs/Day Years [...] encounter Miscellaneous Notes * Telephone Encounter - Shraddha Barker - 12/04/2024 10:55 AM EST CALLED PT to schedule a nutrition appt, NA\LVM documented in this encounter Plan of Treatment Upcoming Encounters Date Type Department Care Team (Late st Contact Info) Description 01/01/2025 3:00 PM EDT Nutrition [facility] DIABETES/NUTRITION [address] [place] [address] [place] [address] 02/04/2025 10:30 AM EDT Office Visit [facility] MEDICINE [address] [place] [address] Coco Wells NP [address] [place] [address] documented as of this encounter Visit Diagnoses Not on filedocumented in this encounter Additional Health Concerns Assessment Noted Time PHQ-9 Depression Total Score: 3 10/28/19 3:12 PM EST documented as of this encounter Care Teams Wrapping Machine Tender Relationship Specialty Start Date End Date Coco Wells NP [address] [place] [address] PCP - General Family Medicine 06/26/24 documented as of this encounter
== END 2024-12-14 15:44 | disposition home or self-care (01) ==
LOC: HO.US 15:43
PROVIDERS: Visit Provider Advanced Practice Midwife
DX: N94.10 Unspecified dyspareunia (principal)
CPT/HCPCS: 76830; 76856

== ENCOUNTER → 2024-12-14 15:44 | Outpatient (BNV) | payer MEDICAID, SELFPAY | PROVIDERS: Visit Provider Radiology Diagnostic Radiology | DX: N94.19 Other specified dyspareunia (principal) | CPT/HCPCS: 76830; 76856 ==

== ENCOUNTER 2024-12-31 13:33 | Outpatient (REF) | payer MEDICAID, SELFPAY ==
--- OUTSIDE RECORDS SUMMARY | 2024-12-31 15:20 | XMS_ITS | Encounter Summary ---
Author Organization [email or web address] Address [address] [facility] 7t [place] [address] Care Team Providers Care Shuttleless Loom Weaver Name Role Phone Joy Mancini Primary Care Provider [phone] Coco Wells NP Primary Care Provider [phone] Encounter Details Date Type Department Care Team (Late st Contact Info) Description 10/31/[address] [facility] CH[facility] MED & PEDS [address] [place] [address] Joy Mancini FNP [address] [place] [address] Dietary counseling (Primary Dx) Social History Tobacco [...] Care Team (Late st Contact Info) Description 02/04/2025 10:30 AM EDT Office Visit [facility] MEDICINE [address] [place], [place] [phone] Coco Wells NP [address] [place] [address] documented as of this encounter Procedures Procedure Name Priority Date/Time Associated Diagnosis Comments LIPID PANEL, STANDARD Routine 01/11/2024 9:40 AM EDT Dietary counseling documented in this encounter Results * (ABNORMAL) Lipid Panel, Standard (01/11/2024 9:40 AM EDT) Triglycerides 189(H) <150 mg/dL [facility] Comment:Desirable Triglyceri de: less than 90 mg/dLBorderline High Triglyceride: 90-129 mg/dLHigh Triglyceride: greater than 130 mg/dL Cholesterol 242(H) <200 mg/dL [facility] Comment:Desirable Cholestero l: less than 170 mg/dLBorderline High Cholesterol: 170-199 mg/dLHigh Cholesterol: greater than 200 mg/dL LDL Cholesterol Calculated 156(H) <100 mg/dL [facility] Comment:Desirable LDL: less than 110 mg/dLBorderline LDL: 110-129 mg/dLHigh LDL: greater than or equal to 130 mg/dL HDL Cholesterol 49 >40 mg/dL [facility] Comment:Desirable HDL: great er than 45 mg/dLBorderline HDL: 40-45 mg/dLLow HDL: less than 40 mg/dL Note: This HDL assay may give artificially low results in patients with liver disease. Blood Venous blood specimen / Unknown 01/11/2024 9:40 AM EDT 01/11/2024 11:11 AM EDT Joy CANEL[facility] BLOOD ORDERABLES Final Resu lt [facility] [address] [place] [address] [phone] documented in this encounter Visit Diagnoses Diagnosis Dietary counseling- Primary Dietary surveillance and counseling documented in this encounter Additional Health Concerns Assessment Noted Time PHQ-9 Depression Total Score: 3 10/28/19 24 3:12 PM EST documented as of this encounter Care Teams Shuttleless Loom Weaver Relationship Specialty Start Date End Date Joy Mancini FNP [address] [place] [address] PCP - General Family Medicine 04/21/23 06/25/24 Coco Wells NP [address] [place] [address] PCP - General Family Medicine 06/26/24 documented as of this encounter
--- OUTSIDE RECORDS SUMMARY | 2024-12-31 15:20 | XMS_ITS | Clinical Summary ---
Author Organization [facility] Address [address] [place] [address] Care Team Providers Care Machine Specialist Name Role Phone Unavailable Primary Care Provider [...]
--- OUTSIDE RECORDS SUMMARY | 2024-12-31 15:20 | XMS_ITS | Encounter Summary ---
Author Organization [email or web address] Address [address] [facility] 7[address] [place] [address] Care Team Providers Care Audiology Director Name Role Phone Coco Wells EUGENE Primary Care Provider [phone] Encounter Details Date Type Department Care Team ([facility] st Contact Info) Description 12/31/2024 1:15 PM EDT Nurse Only [facility] MEDICINE [address] [place], [place] [phone] David Laughlin, PharmD [address] [place] [address] Social History Tobacco Use Types Packs/Day Years [...] PM EST documented as of this encounter Progress Notes * David Laughlin PharmD - 12/31/2024 1:15 PM EDT Non-Billable pharmacy administered vaccination: Gardasil 9 Dose # 3 administered. Patient toleratedwell. Immunizations updated in EHR. documented in this encounter Plan of Treatment Upcoming Encounters Date Type Department Care Team (Late st Contact Info) Description 02/04/2025 10:30 AM EDT Office Visit [facility] MEDICINE [address] [place] [address] Coco Wells NP [address] [place] [address] documented as of this encounter Visit Diagnoses Not on filedocumented in this encounter Additional Health Concerns Assessment Noted Time PHQ-9 Depression Total Score: 3 10/28/19 24 3:12 PM EST documented as of this encounter Care Teams Audiology Director Relationship Specialty Start Date End Date Coco Wells NP [address] [place] [address] PCP - General Family Medicine 06/26/24 documented as of this encounter
--- OUTSIDE RECORDS SUMMARY | 2024-12-31 15:20 | XMS_ITS | Encounter Summary ---
Author Organization [employer] Address [address] [facility] 7t [place] [address] Care Team Providers Care Vp [employer] Solutions Name Role Phone Haileeronnie Coco KNIGHT Primary Care Provider [phone] Reason for Visit * Reason Onset Date Comments NUTRITION APPT REQUEST 12/04/2024 Encounter Details Date Type Department Care Team ([facility] st Contact Info) Description 12/04/2024 Telephone [facility] MEDICINE [address] [place], [place] [phone] Hailey Mc[address]son [address] [place] [address] NUTRITION APPT REQUEST Social History Tobacco Use [...] Description 02/04/2025 10:30 AM EDT Office Visit [facility] MEDICINE [address] [place] [address] Coco Wells NP [address] [place] [address] documented as of this encounter Visit Diagnoses Not on filedocumented in this encounter Additional Health Concerns Assessment Noted Time PHQ-9 Depression Total Score: 3 10/28/19 3:12 PM EST documented as of this encounter Care Teams Vp [employer] Marketing Solutions Relationship Specialty Start Date End Date Coco Wells NP [address] [place] [address] PCP - General Family Medicine 06/26/24 documented as of this encounter
--- OUTSIDE RECORDS SUMMARY | 2024-12-31 15:20 | XMS_ITS | Encounter Summary ---
Author Organization [employer] Address [address] [facility] 7t [place] [address] Care Team Providers Care Piano Sounding Board Matcher Name Role Phone Priscilla Coco KNIGHT Primary Care Provider [phone] Reason for Visit * Reason Comments Sore Encounter Details Date Type Department Care Team ([facility] st Contact Info) Description 12/29/2024 11:40 AM EST Office Visit [facility] [address] [place], [place] [phone] Feliz Pacheco MD [address] [place] [address] Plantar wart of left foot (Primary Dx) Social History Tobacco Use Types Packs/Day Years Used Date Smoking Tobacco: Never Passive Smoke Exposure: Never Smokeless Tobacco: Never Tobacco Cessation:Counseling Given: Not Answered Alcohol Use Standard Drinks/Week Comments Never 0 [...] Sign Reading Time Taken Comments Blood Pressure 123/74 12/29/2024 11:38 AM EST Pulse 99 12/29/2024 11:38 AM EST Temperature 35.9 ??C (96.6 ??F) 12/29/2024 11:[address] Respiratory Rate 12 12/29/2024 11:38 AM EST Oxygen Saturation 98% 12/29/2024 11:38 AM EST Inhaled Oxygen Concentration - - Weight 93.6 kg (206 lb 6 oz) 12/29/2024 11:38 AM EST Height 162.6 cm (5' 4 ) 12/29/2024 11:38 AM EST Body Mass Index 35.42 12/29/2024 11:38 AM EST documented in this encounter Progress Notes * Feliz Pacheco MD - 12/29/2024 11:40 AM EST Subjective History was provided by the patient. Zaida Son is a 19 y.o. female who presents for evaluation of left foot sore for few weeks. Started as small blisters at the plantar aspect of left foot first metatarsal area. Now with callus formation. Denies discharge or bleeding. Denies F/C. Objective Vitals: 12/29/24 1138 BP: 123/74 BP Location: Left arm Patient Position: Sitting BP Cuff Size: Large adult Pulse: 99 Resp: 12 Temp: 96.6 ??F (35.9 ??C) TempSrc: Temporal SpO2: 98% Weight: 206 lb 6 oz (93.6 kg) Height: 5' 4 (1.626 m) Physical Exam Constitutional: General: She is not in acute distress. Appearance: Normal appearance. She is not ill-appearing, toxic-appearing or diaphoretic. HENT: Head: Normocephalic and atraumatic. Right Ear: External ear normal. Left Ear: External ear normal. Mouth/Throat: Pharynx: Oropharynx is clear. Eyes: Extraocular Movements: Extraocular movements intact. Conjunctiva/sclera: Conjunctivae normal. Pulmonary: Effort: Pulmonary effort is normal. Musculoskeletal: General: Normal range of motion. Cervical back: Neck supple. Skin: General: Skin is warm and dry. Comments: Left foot plantar first metatarsal area with calluses and central vesicles; no erythema Neurological: General: No focal deficit present. Mental Status: She is alert and oriented to person, place, and time. Psychiatric: Mood and Affect: Mood normal. Behavior: Behavior normal. Zaida was seen today for sore. Diagnoses and all orders for this visit: Plantar wart of left foot (Primary) Patient presents to Tuesday [facility] with plantar warts of left foot Discussed treatment options Patient opted cryotherapy with LN spray Area was cleaned with alcohol swab Cryotherapy applied x3 Patient tolerated the procedure well Wound care reviewed Advised to return in 2 week if no complete resolution Indications for UC/ER use reviewed Advised to contact the clinic if persistent or worsening symptoms documented in this encounter Plan of Treatment Upcoming Encounters Date Type Department Care Team (Late st Contact Info) Description 02/04/2025 10:30 AM EDT Office Visit [facility] MEDICINE [address] [place] [address] Coco Wells NP [address] [place] [address] documented as of this encounter Visit Diagnoses Diagnosis Plantar wart of left foot- Primary Plantar wart documented in this encounter Additional Health Concerns Assessment Noted Time PHQ-9 Depression Total Score: 3 10/28/19 24 3:12 PM EST documented as of this encounter Care Teams Piano Sounding Board Matcher Relationship Specialty Start Date End Date Coco Wells NP [address] [place] [address] PCP - General Family Medicine 06/26/24 documented as of this encounter
--- OUTSIDE RECORDS SUMMARY | 2024-12-31 15:20 | XMS_ITS | Encounter Summary ---
Author Organization [employer] Address [address] [place] [address] [address] [place] [address] Care Team Providers Care Filling Technician Name Role Phone Coco Wells EUGENE Primary Care Provider [phone] Encounter Details Date Type Department Care Team (Latest Contact Info) Description 12/31/2024 Travel Social History Tobacco Use Types Packs/Day [...] Description 02/04/2025 10:30 AM EDT Office Visit [facility] MEDICINE [address] [place] [address] Coco Wells NP [address] [place] [address] documented as of this encounter Visit Diagnoses Not on filedocumented in this encounter Additional Health Concerns Assessment Noted Time PHQ-9 Depression Total Score: 3 10/28/19 24 3:12 PM EST documented as of this encounter Care Teams Filling Technician Relationship Specialty Start Date End Date Coco Wells NP [address] [place] [address] PCP - General Family Medicine 06/26/24 documented as of this encounter
--- OUTSIDE RECORDS SUMMARY | 2024-12-31 15:20 | XMS_ITS | Encounter Summary ---
Author Organization [employer] Address [address] [facility] 7t [place] [address] Care Team Providers Care Director Name Role Phone Haileeronnie Coco EUGENE Primary Care Provider [phone] Reason for Visit * Reason Onset Date Comments NUTRITION APPT REQUEST 12/28/2024 Encounter Details Date Type Department Care Team ([facility] st Contact Info) Description 12/28/2024 Telephone [facility] MEDICINE [address] [place], [place] [phone] Hailey Mc[address]son [address] [place] [address] NUTRITION APPT REQUEST Social History Tobacco Use [...] * Telephone Encounter - Shraddha Barker - 12/28/2024 2:47 PM EST CALLED PT to let them know that the appt for 12/28/2024 is cancelled due to Direct Service Worker not being in. NA\LVM documented in this encounter Plan of Treatment Upcoming Encounters Date Type Department Care Team (Late st Contact Info) Description 02/04/2025 10:30 AM EDT Office Visit [facility] MEDICINE [address] [place] [address] Coco Wells NP [address] [place] [address] documented as of this encounter Visit Diagnoses Not on filedocumented in this encounter Additional Health Concerns Assessment Noted Time PHQ-9 Depression Total Score: 3 10/28/19 24 3:12 PM EST documented as of this encounter Care Teams Director Relationship Specialty Start Date End Date Coco Wells NP [address] [place] [address] PCP - General Family Medicine 06/26/24 documented as of this encounter
--- OUTSIDE RECORDS SUMMARY | 2024-12-31 15:20 | XMS_ITS | Encounter Summary ---
Author Organization [employer] Address [address] [facility] 7t [place] [address] Care Team Providers Care Home Mission Worker Name Role Phone Coco Wells NP Primary Care Provider Encounter Details Date Type Department Care Team ([facility] st Contact Info) Description 12/28/2024 Telephone [facility] MEDICINE [address] [place], [place] [phone] Coco Wells NP [address] [place] [address] Social History Tobacco Use Types Packs/Day Years [...] Telephone Encounter - Mar Duran RN - 12/28/2024 12:35 PM EST Called pt RE: Incoming pt. Portal message. Pt. States that she has some corns? Warts on palm of left foot under great toe. Pt. Has had them x 6 months and more are forming in area. Causes pain. Pt. Works until; 5pm during the week. Advised tht she can be seen in [facility] walk in tomorrow, Tuesday12/29/24 between 9am-1230pm. Pt states she will go to walk in tomorrow. Pt. Has not tried any OTC medications as she is unsure as to what the bumps really are. Protocol Used: Foot Pain (Adult) Protocol-Based Disposition: See in Office or Video Visit within 3 Days Video visit offer not recorded Positive Triage Questions: * Moderate pain (e.g., interferes with normal activities, limping) and present > 3 days * Patient wants to be seen * Caused by known bunions, plantar wart, or flat feet * All higher-acuity triage questions were negative documented in this encounter Plan of Treatment Upcoming Encounters Date Type Department Care Team (Late st Contact Info) Description 02/04/2025 10:30 AM EDT Office Visit [facility] MEDICINE [address] [place] [address] Coco Wells NP [address] [place] [address] documented as of this encounter Visit Diagnoses Not on filedocumented in this encounter Additional Health Concerns Assessment Noted Time PHQ-9 Depression Total Score: 3 10/28/19 24 3:12 PM EST documented as of this encounter Care Teams Home Mission Worker Relationship Specialty Start Date End Date Coco Wells NP [address] [place] [address] PCP - General Family Medicine 06/26/24 documented as of this encounter
--- OUTSIDE RECORDS SUMMARY | 2024-12-31 15:20 | XMS_ITS | Encounter Summary ---
Author Organization [employer] Address [address] [place] [address] 7t [place] [address] Care Team Providers Care Digital Performance Analyst Name Role Phone Coco Wells EUGENE Primary Care Provider [phone] Encounter Details Date Type Department Care Team (Latest Contact Info) Description 12/29/2024 Travel Social History Tobacco Use Types Packs/Day [...] Description 02/04/2025 10:30 AM EDT Office Visit [facility] MEDICINE [address] [place] [address] Coco Wells NP [address] [place] [address] documented as of this encounter Visit Diagnoses Not on filedocumented in this encounter Additional Health Concerns Assessment Noted Time PHQ-9 Depression Total Score: 3 10/28/19 24 3:12 PM EST documented as of this encounter Care Teams Digital Performance Analyst Relationship Specialty Start Date End Date Coco Wells NP [address] [place] [address] PCP - General Family Medicine 06/26/24 documented as of this encounter
--- OUTSIDE RECORDS SUMMARY | 2024-12-31 15:20 | XMS_ITS | Clinical Summary ---
Author Organization [employer] Address [address] [facility] 7t [place] [address] Care Team Providers Care Slide Fastener Chain Assembler Name Role Phone Haileeronnie Coco EUGENE Primary Care Provider [phone] Allergies No known active allergies Medications montelukast [...] Encounters Date Type Department Care Team Description 12/31/2024 1:15 PM EDT Nurse Only [facility] [address] [place] [phone] David Laughlin, PharmVi 12/31/2024 Travel 12/29/2024 11:40 AM EST Office Visit [facility] [address] [place] [address] Feliz Pacheco MD Plantar wart of left foot (Primary Dx) 12/29/2024 Travel 12/28/[address] NUTRITION APPT REQUEST 12/28/2024 Telephone [facility] [address] [place] [address] Coco Wells NP 12/26/[address] [phone] Coco Wells NP Nurse Triage 12/04/[address] NUTRITION APPT REQUEST 11/29/2024 Travel 11/28/2024 9:30 AM EST Procedure Visit [address] [address] Franklin Darby, RADHA Dyspareunia, female (Primary Dx); Weight gain; Vaginal discharge; Screening examination for venereal disease; BMI 35.0-35.9,adult 11/28/2024 Travel 11/21/2024 Travel 11/15/[address] [address] Coco Wells NP from Last 3 Months Immunizations Name Administration Dates Next Due DTaP, 5 pertussis antigens 03/26/2008,,2004,07/21,2004 HPV 9-Valent 12/31/2024,11/01/2023,02/09/2023 Hep A, ped/adol, 2 dose 09/16/2009,2009 Hep [...] the past 12 months, has t he [employer], gas, oil or water company threatened to [...] Mass Index 35.42 12/29/2024 11:38 AM EST Plan of Treatment Upcoming Encounters Date Type Department Care Team (Late st Contact Info) Description 02/04/2025 10:30 AM EDT Office Visit [facility] [address] [place], [place] [phone] Coco Wells NP [address] [place], [place] [phone] Health Maintenance Due Date Last Done Comments Alcohol/Substance Use Screening 2016 Pneumococcal Vaccine: Pediatrics (0 to 5 Years) and At-Risk Patients (6 to 49) Years) (1 of 2 - PCV) 02/17/2023 03/26/2008, 04/14/2007, 01/18/2005 COVID-19 Vaccine (1 - 2023- season) 2024 Influenza Vaccine (#1) 2024 , 12/25/2013, 07/18/2012, Additional history exists Depression Screening 10/28/2024 10/28/2023, 10/28/19 24 SDOH Screening 10/28/2024 10/28/2023 Chlamydia and Gonorrhea Screening 11/28/2025 11/28/2024, 10/28/2023, 05/13/2023 Family Planning (PISQ) 11/28/2025 11/28/2024 Tobacco Screening 12/29/2025 12/29/2024 DTaP/Tdap/Td Vaccines (7 - Td or Tdap) [...] complete this topic IPV Vaccines Completed 03/26/2008, 10/2003, 2004, Additional history exists Hepatitis A Vaccines Completed 09/16/2009, 02/19/20 09 Meningococcal Vaccine Completed 02/09/2023 HIV Screening Completed 05/13/2023 Hepatitis C Screening Completed 05/13/2023 HPV Vaccines Completed 12/31/2024, 06/2024, 02/09/2023 RSV under 20 months Aged Out No longe r eligible based on patient's age to complete this topic Rotavirus Vaccines Aged Out No longer eligible based on patient's age to complete this topic Procedures Procedure Name Priority Date/Time Associated Diagnosis Comments US PELVIS TRANSVAGINAL Urgent 12/14/2024 3:47 PM EST Dyspareunia, female CHLAMYDIA/N. GONORRHOEAE RNA, TMA, UROGENITAL Routine 11/28/2024 10:25 AM EST Screening examination for venereal disease POCT WET [place]/ENEDINA Routine 11/28/2024 10 :16 AM EST Vaginal discharge HEPATITIS C ANTIBODY Routine 05/13/2023 4:36 PM EDT Acute vaginitis HIV 1 RNA, QUANTITATIVE REAL TIME PCR Routine 05/13/2023 4:36 PM EDT Acute vaginitis from Last 3 Months or Most Recently Relevant to Health Maintenance Results * US Pelvis Transvaginal (12/14/2024 3:47 PM EST) Anatomical Region Laterality Modality Pelvis Ultrasound 12/14/2024 3:47 PM EST Narrative 12/14/2024 4:45 PM EST ? [facility] ?[address] ?[place] [address] ? Ultrasound Report ? Signed ? Patient: Son Palmer,Zaida ?MR#: [id number] ?? [id number] ? : 2005 ?Acct:[id number] ? Age/Sex: 19 / F ?ADM Date: 12/14/24 ? Loc: HO.US ? Attending Dr: Franklin Darby CNM ? Ordering Physician: FRANKLIN DARBY CNM ?? Date of Service: 12/14/24 ?? Procedure(s): US pelvic and transvaginal ?? Accession Number(s): [id number] ? cc: FRANKLIN DARBY CNM ? EXAMINATION: ? US PELVIS ? CLINICAL INFORMATION: ? Dyspareunia ? COMPARISON: ?? None available. ? TECHNIQUE: ?? Ultrasound of the pelvis is performed using both transabdominal and ?? transvaginal transducers along with Doppler. Transvaginal imaging is ?? performed due to inadequate visualization transabdominally. ? FINDINGS: ?? Uterus: ?? The uterus is anteverted and measures 6.8 x 2.8 x 5.3 cm. ??The cervix ?? appears normal. There is a tiny amount of anechoic fluid in the ?? endocervical canal, nonspecific. ? The double wall endometrial thickness is 3 mm. ??It is uniform. ? The uterus is smooth in contour and has normal myometrial echogenicity. ?No visible fibroid. ? Adnexa: ?? Both ovaries are visualized. There is normal color flow to the adnexa. ?? There is no ovarian torsion. ??There is no pelvic ascites or fluid ?? collection. There are no adnexal masses. ? Right ovary measures 3.0 x 2.9 x 1.9 cm. Volume = 8.7 mL. Normal ?? sonographic appearance. 1.4 cm dominant follicle. ? Left ovary measures 3.8 x 2.5 x 1.5 cm. Volume = 7.5 mL. Normal ?? sonographic appearance. ? US/US pelvic and transvaginal ?? IMPRESSION: ?? Normal pelvic ultrasound. ? Electronically signed by: ??Car Driver MD ??12/14/2024 04:42 PM EST RP ? Dictated By: ?Car Driver MD ? Signed By: ?<Electronically signed by Car Driver MD in OV> ?12/14/24 1642 ? DD/ 1547 ? TD/TT: 12/14/24 1619 ? Returned Telephone Equipment Appraiser: ? Procedure Note Donotuseinterpreter, Image - 12/14/2024 [place] [address] Ultrasound Report Signed Patient: Zaida MelgarMR#: [id number] : 2005Acct:[id number] Age/Sex: 19 / FADM Date: 12/14/24 Loc: HO.US Attending Dr: Franklin Darby CNM Ordering Physician: FRANKLIN DARBY CNM Date of Service: 12/14/24 Procedure(s): US pelvic and transvaginal Accession Number(s): [id number] cc: FRANKLIN DARBY CNM EXAMINATION: US PELVIS CLINICAL INFORMATION: Dyspareunia COMPARISON: None available. TECHNIQUE: Ultrasound of the pelvis is performed using both transabdominal and transvaginal transducers along with Doppler. Transvaginal imaging is performed due to inadequate visualization transabdominally. FINDINGS: Uterus: The uterus is anteverted and measures 6.8 x 2.8 x 5.3 cm. The cervix appears normal. There is a tiny amount of anechoic fluid in the endocervical canal, nonspecific. The double wall endometrial thickness is 3 mm. It is uniform. The uterus is smooth in contour and has normal myometrial echogenicity. No visible fibroid. Adnexa: Both ovaries are visualized. There is normal color flow to the adnexa. There is no ovarian torsion. There is no pelvic ascites or fluid collection. There are no adnexal masses. Right ovary measures 3.0 x 2.9 x 1.9 cm. Volume = 8.7 mL. Normal sonographic appearance. 1.4 cm dominant follicle. Left ovary measures 3.8 x 2.5 x 1.5 cm. Volume = 7.5 mL. Normal sonographic appearance. US/US pelvic and transvaginal IMPRESSION: Normal pelvic ultrasound. Electronically signed by: Car Driver MD 12/14/2024 04:42 PM EST RP Dictated By: Car Driver MD Signed By: <Electronically signed by Car Driver MD in OV> 12/14/24 1642 DD/ 1547 TD/TT: 12/14/24 1619 Returned Telephone Equipment Appraiser: us Franklin Darby [facility] IM US PROCEDURES Final R esult * Chlamydia/N. Gonorrhoeae RNA, TMA, Urogenitial (11/28/2024 10:25 AM EST) CT PCR NOT DETECTED Not Detect. [facility] Comment:A not detected test result does [...] psychologicalconsequences. NG PCR NOT DETECTED Not Detect. [facility] Comment:A not detected test result does [...] AM EST 11/28/2024 2:43 PM EST Narrative [facility] - 11/29/2024 4:53 AM EST Vaginal Franklin Darby CNM LAB MICROBIOLOGY - GENERA L ORDERABLES Final Result Performing Organization Address City/[facility]/ZIP Co de Phone Number [facility] [address] [place] [phone] * POCT fern test, vaginal fluid manually resulted (11/28/2024 10:16 AM EST) Pathologist [facility] EN[facility]INA Prep Negative Comment:pH 4.5, neg whiff, n eg clue, neg trich, neg yeast, neg wbc Vaginal Fluid Vaginal structure / Unknown 11/28/2024 10:16 AM EST Impressions Franklin Darby CNM - 11/28/2024 10:16 AM EST normal Franklin Darby CNM POINT OF CARE TEST ENTER/ EDIT ORDERABLES Final Result * Hepatitis C Ab (05/13/2023 4:36 PM EDT) [facility] Hepatitis C Antibody Nonreactive Nonreactive [facility] Comment:Antibodies to HCV no t detected; does not exclude early acuteHCV infection. Blood 05/13/2023 4:36 PM EDT 05/13/2023 5:34 PM EDT Myesha Carpio INSPECTING SUPERVISOR LAB BLOOD ORDERABLES Final Res ult [facility] [address] [place] [phone] * HIV-1 RNA, Quantitative, Real-Time PCR (05/13/2023 4:36 PM EDT) [facility] HIV RNA PCR Qn Copies NOT DETECTED NOT DETECTED copies/mL [facility] HIV RNA PCR Qn Log Copies NOT DETECTED NOT DETECTED [facility] Comment:Result Units: Log co pies/mLThis test was performed using Real-Time Polymerase ChainReaction.Reportable Range: 20 copies/mL to 10,000,000 copies/mL(1.30 log copies/mL to 7.00 log copies/mL).THIS TEST WAS PERFORMED AT:[facility] [place] [phone] HURT MD Blood Venous blood specimen / Unknown 05/13/2023 4:36 PM EDT 05/13/2023 5:34 PM EDT us Myesha Carpio INSPECTING SUPERVISOR LAB BLOOD ORDERABLES Final Res ult [facility] [address] [place] [address] [phone] from Last 3 Months or Most Recently Relevant to Health Maintenance [place] [address] [place] [address] C3 Care Teams Slide Fastener Chain Assembler Relationship Specialty Start Date End Date Coco Wells NP [address] [place] [phone] PCP - General Family Medicine 06/26/24
--- OUTSIDE RECORDS SUMMARY | 2024-12-31 15:20 | XMS_ITS | Encounter Summary ---
Author Organization [employer] Address [address] [facility] 7t [place] [address] Care Team Providers Care Vending Route Servicer Name Role Phone Coco Wells NP Primary Care Provider [phone] Reason for Visit * Reason Onset Date Comments Nurse Triage 12/26/2024 Encounter Details Date Type Department Care Team ([facility] st Contact Info) Description 12/26/2024 Telephone [facility] [address] [place], [place] [phone] Coco Wells NP [address] [place] [address] Nurse Triage Social History Tobacco Use Types Packs/Day Years [...] encounter Miscellaneous Notes * Telephone Encounter - Stephenie Del Toro RN - 12/26/2024 11:45 AM EST Images from the original note were not included. Call returned to Zaida Son for triage below. No answer LVM to return call to [facility] triage line [phone]. Will also send portal message to return call. FW: Referral for global account manager Received: Today Stephenie Del Toro RN P [place] Triage Nurse Previous Messages Referral for global account manager (Newest Message First) View All Conversations on this Encounter You routed conversation to [place] Triage Nurse2 hours ago (9:04 AM) Zaida Velez [place] [facility] Clinical Support (supporting Coco Wells NP)12 hours ago (10:48PM) SP I???ve been having pain on the bottom of my left foot and I have noticed that I have a clusters of corns on the plant of my foot under my big toe. Just wanted to get a referral to a foot doctor to get them removed. documented in this encounter Plan of Treatment Upcoming Encounters Date Type Department Care Team (Late st Contact Info) Description 02/04/2025 10:30 AM EDT Office Visit [facility] [address] [place] [address] Coco Wells NP [address] [place] [address] documented as of this encounter Visit Diagnoses Not on filedocumented in this encounter Additional Health Concerns Assessment Noted Time PHQ-9 Depression Total Score: 3 10/28/19 24 3:12 PM EST documented as of this encounter Care Teams Vending Route Servicer Relationship Specialty Start Date End Date Coco Wells NP [address] [place] [address] PCP - General Family Medicine 06/26/24 documented as of this encounter
[2024-12-31 16:55] LABS: TSH reflex Free T4 2.58 uIU/mL (0.32-4.0)
[2025-01-01 20:52] LABS: Rubella IgG Antibody 1.41 Index
[2025-01-03 14:08] LABS: TS Negative Control Passed; TS Panel A 0; TS Panel B 0; TS Positive Control Passed; TSpotTB Negative (Negative)
== END 2024-12-31 13:34 | disposition home or self-care (01) ==
LOC: HO.HHCL 13:33
PROVIDERS: Nurse Practitioner Family; Visit Provider Advanced Practice Midwife
DX: Z00.00 Encounter for general adult medical examination without abnormal findings (principal); R63.5 Abnormal weight gain
CPT/HCPCS: 36415; 84443; 86481; 86735; 86762; 86765

== ENCOUNTER 2025-01-23 18:15 | Emergency (ER) | payer MEDICAID, SELFPAY ==
--- NOTE | ~2025-01-23 | XR_ITS ---
CLINICAL HISTORY: SOB Chest Radiographs, 2 views Comparison: None Findings: No cardiomegaly. Normal mediastinal contours. No pneumothorax. No opacity. No pleural effusion. Normal upper abdomen. No acute fracture. Impression: No acute findings. This document has been electronically signed by: Debbie Murillo MD on 01/23/2025 18:51:32
[2025-01-23 18:29] VITALS: BP 132/87; PULSE 110; RESP 19; TEMP 37.2; O2SAT 98; BMI 35.0
--- NOTE | 2025-01-23 18:29 | ED.GENADULT ---
HPI - General Adult General Chief complaint: Upper Respiratory Symptoms Stated complaint: ?covid Time Seen by Provider: 01/23/25 22:22 Source: patient Limitations: no limitations History of Present Illness ED Provider: HPI narrative: Patient's history of asthma been having cold symptoms congestion since yesterday using inhaler saturating 100% room air patient was tested positive for COVID at home does have occasional cough Related Data Previous Rx's ?Medication ?Instructions ?Recorded cephalexin 500 mg capsule 500 mg PO QID 7 days #28 caps 02/07/23 diphenhydramine HCl 25 mg capsule 25 mg PO TID PRN itching 5 days 02/07/23 (Benadryl) #15 caps doxycycline hyclate 100 mg capsule 100 mg PO BID 7 days #14 caps 02/07/23 acetaminophen 500 mg tablet 500 mg PO Q6H PRN fever or pain 09/17/23 (Tylenol Extra Strength) #30 tabs ibuprofen 400 mg tablet 400 mg PO TID PRN fever or pain 09/17/23 #30 tabs nirmatrelvir 300 mg (150 mg See Rx Instructions PO .COMPLEX 09/17/23 x2)-ritonavir 100 mg tablet,dose #30 ea pack (Paxlovid) albuterol sulfate 90 mcg/actuation 2 puff inhalation Q6H PRN 01/23/25 aerosol inhaler shortness of breath or wheezing #8.5 grams prednisone 20 mg tablet 40 mg (2 x 20 mg) PO DAILY #10 tabs 01/23/25 Allergies Allergy/AdvReac Type Severity Reaction Status Date / Time No Known Allergies Allergy Verified 01/23/25 18:30 Review of Systems Review of Systems: Yes all other systems are reviewed and are negative [facility] Social History Social History Alcohol intake: current Alcohol intake frequency: holidays/special occasions only Advance Directives: No Advance Directives Information Provided: No Do you have a plan to hurt others: No Plan Physical Exam ED Vital Signs: Vital Signs - 24 hr 01/23/25 18:29 01/23/25 20:19 01/23/25 22:27 Temperature 99 F 98.1 F 98.3 F Pulse Rate 110 H 114 H 102 H Respiratory Rate 19 20 20 Blood Pressure 132/87 134/80 136/78 Pulse Oximetry 98 99 98 Oxygen Delivery Method Room Air Room Air Room Air 01/23/25 22:51 01/23/25 23:08 Temperature 98.3 F 98.3 F Pulse Rate 109 H 109 H Respiratory Rate 20 20 Blood Pressure 136/86 136/86 Pulse Oximetry 100 100 Oxygen Delivery Method Room Air Room Air BMI result Body Mass Index 35.0 Appearance: Alert. Oriented X3. No acute distress. Eyes: no pallor or icterus ENT: Pharynx normal. Oral Mucosa moist Neck: Normal inspection. Neck supple. CVS: Normal heart rate and rhythm. Pulses normal. Respiratory: No respiratory distress. Equal air entry bilateral, no wheezing/rales/rhonchi Abd: soft, not tender Skin: Skin warm and dry. Normal skin color. Normal skin turgor. Extremities: No lower extremity edema, no calf tenderness Neuro: Oriented X 3. Course Course Course Narrative: This is an RME: Additional HPI, ROS, PE not included below will be deferred to primary provider. RME assessment and note performed by: Aneta Pierre PA-C This is a 55-kmtf-ydd-female, with a hx of asthma, who presents to the ER with complaints of +covid test at home. Reporting headaches, fevers, body aches, sore throat. Patient tachycardic. Reports some shortness of breath and chest pain with cough. Pt tachycardic, otherwise well appearing. Lungs CTA Plan: Viral swabs, strep swab, EKG, chest x-ray Medications Administered Discontinued Medications Generic Name Dose Route Start Last Admin Trade Name Freq PRN Reason Stop Dose Admin Prednisone 40 mg 01/23/25 22:53 01/23/25 23:06 Prednisone 20 Mg Tablet PO 01/23/25 22:54 40 mg ONCE ONE Administration Medical Decision Making Medical Decision Making MDM Narrative: Patient with COVID positive chest x-ray negative saturating 100% room air does have history of asthma will prescribe prednisone advised to continue inhaler Lab Data [facility] Lab Attestation statement: I reviewed the patient's lab results. 01/23/25 20:29 01/23/25 20:29 Labs: Lab Results 01/23/25 01/23/25 Range/Units 19:12 20:29 WBC 6.3 (4.8-10.8) X10*3/uL RBC 4.95 (4.20-5.50) X10*6/uL Hgb 13.8 (12.0-16.0) g/dl Hct 41.0 (37.0-47.0) % MCV 82.8 (80.0-98.0) fL MCH 27.9 (27.0-33.0) pg MCHC 33.7 (31.0-35.0) g/dl RDW 13.1 (11.0-16.0) % Plt Count 198 D (160-400) X10*3/uL MPV 11.1 (9.4-12.3) fL Immature Gran % (Auto) 0.2 (0.0-0.4) % Neut % (Auto) 71.0 (45-73) % Lymph % (Auto) 16.7 L (20-40) % [place] % (Auto) 8.0 (2-11) % Eos % (Auto) 3.5 (0-4) % Baso % (Auto) 0.6 (0-2) % Lymph # (Auto) 1.1 L (1.2-4.9) X10*3/uL [place] # (Auto) 0.5 (0.1-1.2) X10*3/uL Eos # (Auto) 0.2 (0.0-0.4) X10*3/uL Baso # (Auto) 0.0 (0.0-0.2) X10*3/uL Abs Immat Gran (auto) 0.01 (0.00-0.03) X10*3/uL Absolute Neuts (auto) 4.5 (2.0-8.3) x10*3/uL Absolute Nucleated RBC 0.000 (0.0-0.012) X10*3/uL Nucleated RBC % (auto) 0.0 (0.0-0.2) /100WBC PT 14.1 H (10.9-12.4) SEC INR 1.2 H (0.9-1.1) Sodium 140 (135-145) mmol/L Potassium 4.1 (3.3-5.1) mmol/L Chloride 108 (96-108) mmol/L Carbon Dioxide 25 (22-29) mmol/L Anion Gap 11 L (12-20) BUN 13 (9-16) mg/dL Creatinine 0.87 (0.5-1.4) mg/dL Estim Creat Clear Calc 113.6 Estimated GFR > 60 Random Glucose 87 (60-115) mg/dL Calcium 9.0 (8.4-10.2) mg/dL Magnesium 2.0 (1.6-2.6) mg/dL Total Bilirubin 0.3 (0.0-1.0) mg/dL AST 22 (5-31) U/L ALT 29 (0-31) U/L Alkaline Phosphatase 89 (39-117) U/L Troponin I High Sens < 2.7 (<3.5-17.0) ng/L Total Protein 7.1 (6.5-8.0) g/dL Albumin 4.1 (3.5-5.0) g/dL TSH 1.26 (0.32-4.0) uIU/mL Influenza Type A (PCR) NEGATIVE (Negative) Influenza Type B (PCR) NEGATIVE (Negative) RSV RNA Qual (PCR) NEGATIVE (Negative) SARS-CoV-2 RNA (RT-PCR) POSITIVE A (Negative) S. pyogenes GrpA ROSALIND Negative (Negative) Discharge Plan Discharge Clinical Impression: COVID-19, Asthma Patient Disposition: Home, Self-Care Instructions: Asthma (ED), COVID-19 (Coronavirus Disease 2019) (ED) Additional Instructions: Continue to use your inhaler as needed for shortness a breath Prednisone as prescribed Report to the ER if any significant shortness of breath Prescriptions: New prednisone 20 mg tablet 40 mg PO DAILY Qty: 10 0RF albuterol sulfate 90 mcg/actuation HFA aerosol inhaler 2 puff inhalation Q6H PRN (Reason: shortness of breath or wheezing) Qty: 8.5 0RF No Action cephalexin 500 mg capsule 500 mg PO QID 7 Days Qty: 28 0RF doxycycline hyclate 100 mg capsule 100 mg PO BID 7 Days Qty: 14 0RF diphenhydramine HCl [Benadryl] 25 mg capsule 25 mg PO TID PRN (Reason: itching) 5 Days Qty: 15 0RF Paxlovid 300 mg (150 mg x 2)-100 mg tablets,dose pack See Rx Instructions PO .COMPLEX Qty: 30 0RF Rx Instructions: take TWO 150 mg tablets of nirmatrelvir with ONE 100 mg tablet of ritonavir twice daily for 5 days acetaminophen [Tylenol Extra Strength] 500 mg tablet 500 mg PO Q6H PRN (Reason: fever or pain) Qty: 30 0RF ibuprofen 400 mg tablet 400 mg PO TID PRN (Reason: fever or pain) Qty: 30 0RF Stand Alone Forms: Work/School Release Interventions: ED Discharge Assessment Last Done: 01/23/25 23:08 Discharge Date/Time: 01/23/25 23:08 Print Language: Persian
--- NOTE | 2025-01-23 18:31 | ECG_ITS ---
Test Reason : TACYCARDIA Blood Pressure : */* mmHG Vent. Rate : 118 BPM Atrial Rate : 118 BPM P-R Int : 164 ms QRS Dur : 76 ms QT Int : 318 ms P-R-T Axes : 69 39 44 degrees QTcB Int : 445 ms Sinus tachycardia Possible Left atrial enlargement Borderline ECG When compared with ECG of 16-Sep-2023 21:39, No significant change was found Referred By: Aneta Pierre Electronically Signed By: LOUISA FULTON
[2025-01-23 19:27] LABS: IDNOW Serial# 55D5AD1C; Strep A Nucleic Acid Negative (Negative)
[2025-01-23 19:57] LABS: Influenza A PCR NEGATIVE (Negative); Influenza B PCR NEGATIVE (Negative); Resp Syncy Virus RNA Qual PCR NEGATIVE (Negative); SARS COV2 PCR INHOUSE POSITIVE (Negative)
[2025-01-23 20:19] VITALS: BP 134/80; PULSE 114; RESP 20; TEMP 36.7; O2SAT 99
[2025-01-23 20:33] LABS: MANUAL DIFF FLAG NO
[2025-01-23 20:34] LABS: Basophils Percent Auto 0.6 % (0-2); Eosinophils Absolute Auto 0.2 X10*3/uL (0.0-0.4); Eosinophils Percent Auto 3.5 % (0-4); Hemoglobin 13.8 g/dl (12.0-16.0); Imm Gran Abs Auto 0.01 X10*3/uL (0.00-0.03); Imm Gran Pct Auto 0.2 % (0.0-0.4); Lymphocytes Absolute Auto 1.1 X10*3/uL (1.2-4.9); Lymphocytes Percent Auto 16.7 % (20-40); Mean Corpuscular HGB Conc 33.7 g/dl (31.0-35.0); Mean Corpuscular Hemoglobin 27.9 pg (27.0-33.0); Mean Corpuscular Volume 82.8 fL (80.0-98.0); Mean Platelet Volume 11.1 fL (9.4-12.3); Monocytes Absolute Auto 0.5 X10*3/uL (0.1-1.2); Neutrophils Absolute Auto 4.5 x10*3/uL (2.0-8.3); Platelet Count 198 X10*3/uL (160-400); Red Blood Count 4.95 X10*6/uL (4.20-5.50); Red Cell Distribution Width 13.1 % (11.0-16.0); White Blood Count 6.3 X10*3/uL (4.8-10.8)
[2025-01-23 20:39] LABS: INTERNATIONAL NORM RATIO 1.2 (0.9-1.1); Prothrombin Time 14.1 SEC (10.9-12.4)
[2025-01-23 20:53] LABS: Alanine Aminotransferase 29 U/L (0-31); Albumin Level 4.1 g/dL (3.5-5.0); Alkaline Phosphatase 89 U/L (39-117); Anion Gap 11 (12-20); Aspartate Amino Transferase 22 U/L (5-31); Bilirubin Total 0.3 mg/dL (0.0-1.0); Blood Urea Nitrogen 13 mg/dL (9-16); Carbon Dioxide 25 mmol/L (22-29); Chloride 108 mmol/L (96-108); Creatinine Clr Calc Pharmacy 113.6; Estimated Glomerular Filt Rate > 60; Glucose Random 87 mg/dL (60-115); Potassium 4.1 mmol/L (3.3-5.1); Sodium 140 mmol/L (135-145); Total Protein 7.1 g/dL (6.5-8.0)
[2025-01-23 20:56] LABS: Troponin-I High Sensitivity < 2.7 ng/L (<3.5-17.0)
[2025-01-23 21:08] LABS: TSH reflex Free T4 1.26 uIU/mL (0.32-4.0)
[2025-01-23 22:27] VITALS: BP 136/78; PULSE 102; RESP 20; TEMP 36.8; O2SAT 98
[2025-01-23 22:51] VITALS: BP 136/86; PULSE 109; RESP 20; TEMP 36.8; O2SAT 100
[2025-01-23] MEDS: predniSONE 20 MG TABLET 40 MG PO (23:06)
[2025-01-23 23:08] VITALS: BP 136/86; PULSE 109; RESP 20; TEMP 36.8; O2SAT 100
== END 2025-01-23 23:08 | disposition home or self-care (01) ==
PROVIDERS: Physician Assistant Medical; Emergency Provider Internal Medicine
DX: U07.1 COVID-19 (principal); J45.909 Unspecified asthma, uncomplicated; R00.0 Tachycardia, unspecified; Z79.899 Other long term (current) drug therapy
CPT/HCPCS: 0241U; 36415; 71046; 80053; 83735; 84443; 84484; 85025; 85610; 87651; 93005; 99283; 99284

== ENCOUNTER → 2025-01-23 18:31 | Outpatient (BNV) | payer MEDICAID, SELFPAY | PROVIDERS: Emergency Provider Internal Medicine; Visit Provider Internal Medicine | DX: R00.0 Tachycardia, unspecified (principal) | CPT/HCPCS: 93010 ==

== ENCOUNTER → 2025-01-23 18:31 | Outpatient (BNV) | payer MEDICAID, SELFPAY | PROVIDERS: Visit Provider Radiology Diagnostic Radiology | DX: R06.02 Shortness of breath (principal) | CPT/HCPCS: 71046 ==

== ENCOUNTER 2025-03-04 17:41 | Outpatient (REF) | payer MEDICAID, SELFPAY ==
--- OUTSIDE RECORDS SUMMARY | 2025-03-04 17:43 | XMS_ITS | Encounter Summary ---
Author Organization [employer] Address [address] [facility] 7[address] [place] [address] Care Team Providers Care Physician In Private Practice Name Role Phone Haileeronnie Coco KNIGHT Primary Care Provider [phone] Reason for Visit * Reason Onset Date Comments chart prep 03/01/2025 Encounter Details Date Type Department Care Team ([facility] st Contact Info) Description 03/01/2025 Telephone [facility] [address] [place], [place] [phone] Rosmery Baumann CNM [address] [place] [address] chart prep Social History Tobacco Use Types Packs/Day Years [...] encounter Miscellaneous Notes * Telephone Encounter - Ivory Wang MA - 03/01/2025 11:39 AM EDT Chart Prep Labs: done 01/23/2025 Images: done 11/28/2024 Referrals: complete Vaccines due: Covid and PCV20 Screenings: pap smear and LMP Overdue care gaps: SBIRT, SDOH, PHQ-9, MICHELLE-7, Oral health screening, and Disability screen documented in this encounter Plan of Treatment Upcoming Encounters Date Type Department Care Team (Late st Contact Info) Description 04/15/2025 1:00 PM EDT Office Visit [facility] [address] [place] [address] Rosmery Baumann CNM [address] [place] [address] documented as of this encounter Visit Diagnoses Not on filedocumented in this encounter Additional Health Concerns Assessment Noted Time PHQ-9 Depression Total Score: 3 10/28/19 3:12 PM EST documented as of this encounter Care Teams Physician In Private Practice Relationship Specialty Start Date End Date Coco Wells NP [address] [place] [address] PCP - General Family Medicine 06/26/24 documented as of this encounter
--- OUTSIDE RECORDS SUMMARY | 2025-03-04 17:43 | XMS_ITS | Clinical Summary ---
Author Organization [employer] Address [address] [facility] [address] [place] [address] Care Team Providers Care Enrichment Teacher Name Role Phone Priscilla Coco KNIGHT Primary Care Provider [phone] Allergies No known active allergies Medications montelukast (Singulair) 10 MG tabletIndicatio ns:Mild intermittent asthma, unspecified whether complicated Take 1 tablet (10 mg) by mouth in the evening. 30 tablet 11 12/17/19 23 Active Diclofenac Sodium 1 % gel APPLY 4 G TOPICALLY 2 TIMES DAILY. 04/14/20 23 Active Banophen 25 MG capsule TAKE 1 CAPSULE BY MOUTH THREE TIMES A DAY NEEDED FOR ITCHING FOR 5 DAYS 02/08/20 23 Active ibuprofen 800 MG tablet 1 tablet every 8 hours x 7 days. Take with food 21 tablet 01/02/20 24 Active fluticasone-shahrzad meterol (Advair) 115-21 MCG/ACT inhalerIndicati ons:Persistent asthma with undetermined severity Inhale 2 puffs in the morning and at bedtime. Rinse mouth with water after use to reduce aftertaste and incidence of candidiasis. Do not swallow. 12 g 11 09/25/20 24 2024 Active albuterol 108 (90 Base) MCG/ACT inhalerIndicati ons:Exacerbatio n of asthma, unspecified asthma severity, unspecified whether persistent Inhale 2 puffs every 6 (six) hours if needed for wheezing. 18 g 2 09/26/20 24 2024 Active Drospirenone (Slynd) 4 MG tablet Take 1 tablet by mouth Once per day. 28 tablet 11 03/04/20 25 Active clotrimazole (Lotrimin) 1 % cream Apply topically 2 times daily for 28 days. 30 g 2 03/04/20 25 2024 Active budesonide-form oterol (Symbicort) 160-4.5 MCG/ACT inhaler Inhale 2 puffs in the morning and at bedtime. Rinse mouth with water after use to reduce aftertaste and incidence of candidiasis. Do not swallow. 1 each 03/04/202025 Active predniSONE (Deltasone) 20 MG tablet Take 1 tablet (20 mg) by mouth Once per day for 5 days. 5 tablet 03/04/20 25 2024 Active cetirizine (ZyrTEC) 10 MG tablet Take 1 tablet (10 mg) by mouth Once per day. 90 tablet 3 03/04/202025 Active SUMAtriptan (Imitrex) 25 MG tabletIndicatio ns:Frequent headaches Take 1 tablet (25 mg) by mouth 1 (one) time if needed for migraine for up to 1 dose. May repeat dose once in 2 hours if no relief. Do not exceed 2 doses in 24 hours. 9 tablet 03/15/202024 Discontinued(T herapy completed) Alcohol Swabs (Alcohol Prep) padsIndications :Dizziness 1 each if needed (dizziness). 100 each 03/15/202024 Discontinued(T herapy completed) Lancets 33G miscIndications :Dizziness 1 each if needed (Dizziness). 100 each 03/15/202024 Discontinued(T herapy completed) Blood Glucose Monitoring Suppl (FreeStyle Lite) deviceIndicatio ns:Dizziness Inject under the skin if needed (Dizziness). Test daily before all meals/snacks and once before bedtime. 1 each 03/15/202024 Discontinued(T herapy completed) levonorgestrel- ethinyl estradiol (Aviane, Alesse, Lessina) 0.1-20 MG-MCG tabletIndicatio ns: control counseling Take 1 tablet by mouth in the morning. Take one tablet daily, skip last week (placebo week) and start a 2nd pack immediately 28 tablet 1 01/11/202024 Discontinued predniSONE (Deltasone) 20 MG tablet Take 2 tablets by mouth Once per day. 01/25/20 25 2024 Discontinued Active Problems Problem Noted Date Diagnosed Date Class 1 obesity without seri ous comorbidity with body mass index (BMI) of 34.0 to 34.9 in adult 03/04/2025 Asthma exacerbation 09/26/2024 Assessment & Plan (09/26/2024 4:03 PM EST): Prednisone for 5 days Albuterol inhaler Q 4-6hrs control counseling 04/21/2023 Overview (04/21/2023): Sexually active, [...] not eating Followup PRN Frequent headaches 03/15/2023 Moderate persistent asthma with acute exacerbati on 12/17/2022 Resolved Problems Problem Noted Date Diagnosed Date Resolved Date Mild persistent asthma with exacerbation 09/24/2024 03/04/2025 Assessment & Plan (09/26/2024 4:00 PM EST): Patient educated to avoid triggers Prednisone for 5 days Albuterol inhaler Q 4-6 hrs Persistent asthma with undetermined severity 03/04/2025 Assessment & Plan (09/26/2024 4:01 PM EST): Start advir and montelukast once feeling better, f/u with PCP Encounters Date Type Department Care Team Description 03/04/2025 1:00 PM EDT Office Visit [facility] [address] [address] Melanie Garcia MD Moderate persistent asthma with exacerbation (Primary Dx); Viral URI; Dietary counseling; Exercise counseling; Class 1 obesity without serious comorbidity with body mass index (BMI) of 34.0 to 34.9 in adult, unspecified obesity type 03/04/2025 11:00 AM EDT Office Visit [address] [address] Franklin Darby CNM Nexplanon removal (Primary Dx); Routine cervical smear; Tinea cruris 03/04/2025 Travel 03/01/[address] [address] Franklin Darby CNM chart prep 02/15/[address] [address] Abril Knight, NASRA 01/23/2025 Orders Only [facility] External Provider, [facility] 01/04/2025 Population Health Risk Score [facility] () Department [address] [place] [phone] Provider, Population Health Generic 12/31/2024 1:15 PM EDT Nurse Only [address] [address] David Laughlin, PradipD 12/31/2024 Travel 12/29/2024 11:40 AM EST Office Visit [facility] [address] [address] Feliz Pacheco MD Plantar wart of left foot (Primary Dx) 12/29/2024 Travel 12/28/[address] NUTRITION APPT REQUEST 12/28/2024 Telephone [facility] [address], [place] [phone] Coco Wells NP 12/26/2024 Telephone [facility] [address] [place] [address] Coco Wells NP Nurse Triage from Last 3 Months Immunizations Name Administration Dates Next Due DTaP, 5 pertussis antigens 03/26/2008,,2004,07/21,2004 HPV 9-Valent 12/31/2024,11/01/2023,02/09/2023 Hep A, ped/adol, 2 dose 09/16/2009,2009 Hep B, Adolescent or Pediatric 2004,2003,2004 Hib (HbO) 01/18/2005,2004,2004 IPV 03/26/2008, 4,2004,05/06 Influenza injectable quadriv alent preservative free 10/28/2023 Influenza, Split (incl. carlin fied surface antigen) 12/25/2013,07/18/2012 Influenza, Unspecified 11/18/2010,2009,11/14/2009,08/02 Influenza, live, intranasal 11/18/2010,1 ,11/14/2009,08/02 MMR 03/26/2008,06/07/2005 [...] Answer Date Recorded Patient Health Questionnaire-9 Score 2 03/04/2025 Patient Health Questionnaire-9 Score 2 03/04/2025 Last PHQ-9: Questionnaire Data Not on file 0 03/04/2025 Housing Stability Answer Date Recorded What is [...] Answer Date Recorded Patient Health Questionnaire-2 Score 0 03/04/2025 Comments No Sex and Gender Information Value Date Recorded Sex Assigned at Female 08/23/2022 10:22 AM EDT Legal Sex Female 10:22 AM EDT Gender Identity Female 12/17/2022 3:48 PM EST Sexual Orientation Straight 12/17/2022 3: 48 PM EST Last Filed Vital Signs Vital Sign Reading Time Taken Comments Blood Pressure 138/78 03/04/2025 1:21 PM EDT Pulse 113 03/04/2025 12:52 PM EDT Temperature 36.7 ??C (98 ??F) 03/04/2025 11:49 AM EDT Respiratory Rate 20 03/04/2025 11:07 AM EDT Oxygen Saturation 99% 03/04/2025 11:49 AM EDT Inhaled Oxygen Concentration - - Weight 93 kg (205 lb) 03/04/2025 11:49 AM EDT Height 162.6 cm (5' 4 ) 03/04/2025 11:07 AM EDT Body Mass Index 35.19 03/04/2025 11:07 AM EDT Plan of Treatment Upcoming Encounters Date Type Department Care Team (Late st Contact Info) Description 04/15/2025 1:00 PM EDT Office Visit [facility] [address] [place] [address] BillieFranklin steel, TAMYM [address] [place] [address] Health Maintenance Due Date Last Done Comments Alcohol/Substance Use Screening 2016 Pneumococcal Vaccine: Pediatrics (0 to 5 Years) and At-Risk Patients (6 to 49) Years) (1 of 2 - PCV) 02/17/2023 03/26/2008, 04/14/2007, 01/18/2005 COVID-19 Vaccine (1 - season) 2024 Influenza Vaccine (#1) 2024 , 12/25/2013, 07/18/2012, Additional history exists SDOH Screening 10/28/2024 10/28/2023 Pap Smear 02/17/2025 Chlamydia and Gonorrhea Screening 11/28/2025 11/28/2024, 10/28/2023, 05/13/2023 Depression Screening 03/04/2026 03/04/2025, 03/04/20 Family Planning (PISQ) 03/04/2026 03/04/2025 Tobacco Screening 03/04/2026 03/04/2025 Lipid Panel 01/10/2029 01/11/2024, 010 02/2024, 02/09/2023 DTaP/Tdap/Td Vaccines (7 - Td or Tdap) [...] Name Priority Date/Time Associated Diagnosis Comments POCT INFLUENZA B (ID NOW RAPID MOLECULAR) Routine 03/04/2025 1:05 PM EDT Viral URI POCT INFLUENZA A (ID NOW RAPID MOLECULAR) Routine 03/04/2025 1:05 PM EDT Viral URI POCT RAPID COVID ANTIGEN Routine 03/04/2025 1:05 PM EDT Viral URI TSH W/REFLEX TO FT4 Routine 01/23/2025 8 :29 PM EDT HIGH SENSITIVITY TROPONIN I Routine 01/23/2025 8:29 PM EDT MAGNESIUM Routine 01/23/2025 8:29 PM EDT COMPREHENSIVE METABOLIC PANEL Routine 01/23/2025 8:29 PM EDT PROTHROMBIN TIME-INR Routine 01/23/2025 8:29 PM EDT CBC WITH AUTO DIFFERENTIAL Routine 01/23/2025 8:29 PM EDT SARS COV2/INFLUENZA A/B AND RSV RNA QL NAAT Routine 01/23/2025 7:12 PM EDT STREP A NUCLEIC ACID Routine 01/23/2025 7:12 PM EDT XR CHEST 2 VIEWS Routine 01/23/2025 6:51 PM EDT TSH W/REFLEX TO FT4 Routine 12/31/2024 1 :36 PM EDT Weight gain T-SPOT(R).TB Routine 12/31/2024 1:36 PM EDT Routine health maintenance MEASLES, MUMPS, AND RUBELLA (MMR) AB (IGG) PANEL, IMMUNE STATUS Routine 12/31/2024 1:36 PM EDT Routine health maintenance US PELVIS TRANSVAGINAL Urgent 3:47 PM EST Dyspareunia, female CHLAMYDIA/N. GONORRHOEAE RNA, TMA, UROGENITAL Routine 11/28/2024 10:25 AM EST Screening examination for venereal disease LIPID PANEL, STANDARD Routine 01/11/2024 9:40 AM EDT Dietary counseling HEPATITIS C ANTIBODY Routine 05/13/2023 4:36 PM EDT Acute vaginitis HIV 1 RNA, QUANTITATIVE REAL TIME PCR Routine 05/13/2023 4:36 PM EDT Acute vaginitis from Last 3 Months or Most Recently Relevant to Health Maintenance Results * Influenza B (ID NOW Rapid Molecular) (03/04/2025 1:05 PM EDT) Influenza B Negative Negative, Indeterminate [facility] Swab 03/04/2025 1:05 PM EDT us Melanie Garcia MD POINT OF CARE TEST ENTER/EDIT ORDERABLES Final Result [facility] [address] [place] [phone] * Influenza A (ID NOW Rapid Molecular) (03/04/2025 1:05 PM EDT) [facility] Influenza A Negative Negative, Indeterminate [facility] Swab 03/04/2025 1:05 PM EDT Result [facility] Melanie Garcia MD POINT OF CARE TEST ENTER/EDIT ORDERABLES Final Result Performing Organization Address [facility] Co de Phone Number [facility] [address] [place] [phone] * POCT Rapid COVID Ag (03/04/2025 1:05 PM EDT) [facility] Rapid COVID Ag Negative [facility] Swab 03/04/2025 1:05 PM EDT Result [facility] Melanie Garcia MD POINT OF CARE TEST ENTER/EDIT ORDERABLES Final Result Performing Organization Address [facility] Number [facility] [address] [place] [phone] * High Sensitivity Troponin I (01/23/2025 8:29 PM EDT) [facility] TROPONIN I HIGH SENSITIVITY <2.7 <3.5 - 17.0 ng/L [facility] Comment:The Mendez high sens itivity Troponin-I results should beused in conjunction with other diagnostic information suchas ECG, clinical observations and information, and patientsymptoms to aid in the diagnosis of LA. 01/23/2025 8:29 PM EDT 01/23/2025 8:31 PM EDT Generic External Data Provider LAB BLOOD ORDERAB LES Final Result Performing Organization Address [facility] de Phone Number [facility] [address] [place] [phone] * TSH with Reflex to Free T4 (01/23/2025 8:29 PM EDT) Only the most recent of2 resultswithin the time period is included. [facility] TSH reflex Free T4 1.26 0.32 - 4.0 uIU/mL [facility] 01/23/2025 8:29 PM EDT 01/23/2025 8:31 PM EDT us Generic External Data Provider LAB BLOOD ORDERAB LES Final Result [facility] [address] [place] [phone] * (ABNORMAL) CBC auto differential (01/23/2025 8:29 PM EDT) Pathologist [facility] White Blood Count 6.3 4.8 - 10.8 X10*3/uL [facility] Red Blood Count 4.95 4.20 - 5.50 X10*6/uL [facility] Hemoglobin 13.8 12.0 - 16.0 g/dl [facility] Hematocrit 41.0 37.0 - 47.0 % [facility] Mean Corpuscular Volume 82.8 80.0 - 98.0 fL [facility] Mean Corpuscular Hemoglobin 27.9 27.0 - 33.0 pg [facility] Mean Corpuscular HGB Conc 33.7 31.0 - 35.0 g/dl [facility] Red Cell Distribution Width 13.1 11.0 - 16.0 % [facility] Platelet Count 198 160 - 400 X10*3/uL [facility] Mean Platelet Volume 11.1 9.4 - 12.3 fL [facility] Neutrophils Percent Auto 71.0 45 - 73 % [facility] Imm Gran Pct Auto 0.2 0.0 - 0.4 % [facility] Lymphocytes Percent Auto 16.7(L) 20 - 40 % [facility] Monocytes Percent Auto 8.0 2 - 11 % [facility] Eosinophils Percent Auto 3.5 0 - 4 % [facility] Basophils Percent Auto 0.6 0 - 2 % [facility] NRBC Pct Auto 0.0 0.0 - 0.2 /100WBC [facility] Neutrophils Absolute Auto 4.5 2.0 - 8.3 x10*3/uL [facility] Imm Gran Abs Auto 0.01 0.00 - 0.03 X10*3/uL [facility] Lymphocytes Absolute Auto 1.1(L) 1.2 - 4.9 X10*3/uL [facility] Monocytes Absolute Auto 0.5 0.1 - 1.2 X10*3/uL [facility] Eosinophils Absolute Auto 0.2 0.0 - 0.4 X10*3/uL [facility] Basophils Absolute Auto 0.0 0.0 - 0.2 X10*3/uL [facility] NRBC Abs Auto 0.000 0.0 - 0.012 X10*3/uL [facility] 01/23/2025 8:29 PM EDT 01/23/2025 8:31 PM EDT us Generic External Data Provider LAB BLOOD ORDERAB LES Final Result [facility] [address] [place] [phone] * (ABNORMAL) Prothrombin Time-INR (01/23/2025 8:29 PM EDT) Prothrombin Time 14.1(H) 10.9 - 12.4 SEC [facility] INTERNATIONAL NORM RATIO 1.2(H) 0.9 - 1.1 [facility] Comment:INTERNATIONAL NORMAL IZED RATIO (INR) REFERENCE RANGES Reference RangeFor patients not on anticoagulant therapy: 0.9 - 1.1INR ranges for oral anticoagulanttherapy:For prevention and treatment of venous thrombosis and pulmonary embolism: 2.0 - 3.0For acute myocardial infarction with aspirin therapy: 2.0 - 3.0For acute myocardial infarction without aspirin therapy: 3.0 - 4.0For patients with mechanical prosthetic heart valves: 2.5 - 3.5 01/23/2025 8:29 PM EDT 01/23/2025 8:31 PM EDT us Generic External Data Provider LAB BLOOD ORDERAB LES Final Result Performing Organization Address City/[facility]/ZIP Co de Phone Number [facility] [address] [place] [phone] * Magnesium (01/23/2025 8:29 PM EDT) Pathologist [facility] Magnesium 2.0 1.6 - 2.6 mg/dL [facility] 01/23/2025 8:29 PM EDT 01/23/2025 8:31 PM EDT Generic External Data Provider LAB BLOOD ORDERAB LES Final Result Performing Organization Address [facility] Co de Phone Number [facility] [address] [place] [phone] * (ABNORMAL) Comprehensive Metabolic Panel (01/23/2025 8:29 PM EDT) Pathologist [facility] Sodium 140 135 - 145 mmol/L [facility] Potassium 4.1 3.3 - 5.1 mmol/L [facility] Chloride 108 96 - 108 mmol/L [facility] Carbon Dioxide 25 22 - 29 mmol/L [facility] Anion Gap 11(L) 12 - 20 [facility] Urea Nitrogen (BUN) 13 9 - 16 mg/dL [facility] Creatinine, Serum 0.87 0.5 - 1.4 mg/dL [facility] Creatinine Clr Calc Pharmacy 113.6 [facility] Comment:Provided height and weight: 162.56 cm,92.533 kg.eGFR (calculated from the MDRD study equation) and eCrCl(calculated from the Cockcroft-Gault equation) are based ondifferent parameters and may not yield comparable results.If eCrCl result is absurd, please check patient'sheight/weight. Estimated Glomerular Filt Rate >60 [facility] Comment:Chronic Kidney Disea se: Estimated GFR < 60 mL/min/1.05m2Eszjid Kidney Disease: Estimated GFR < 15 mL/min/1.73m2 Glucose 87 60 - 115 mg/dL [facility] Calcium 9.0 8.4 - 10.2 mg/dL [facility] Bilirubin, Total 0.3 0.0 - 1.0 mg/dL [facility] Aspartate Amino Transferase 22 5 - 31 U/L [facility] Alanine Aminotransferase 29 0 - 31 U/L [facility] Total Protein 7.1 6.5 - 8.0 g/dL [facility] Albumin Level 4.1 3.5 - 5.0 g/dL [facility] Alkaline Phosphatase 89 39 - 117 U/L [facility] 01/23/2025 8:29 PM EDT 01/23/2025 8:31 PM EDT Generic External Data Provider LAB BLOOD ORDERAB LES Final Result Performing Organization Address [facility] de Phone Number [facility] [address] [place] [phone] * Strep A Nucleic Acid (01/23/2025 7:12 PM EDT) IDNOW SERIAL# [id number] [facility] Strep A Nucleic Acid Negative Negative [facility] Comment:All test results mus t be correlated with clinical findings.This test has not been evaluated for monitoring treatment ofinfection.Additional follow-up testing using the culture method isrequired if the result is negative and clinical symptomspersist, or in the event of an acute rheumatic feveroutbreak. 01/23/2025 7:12 PM EDT 01/23/2025 7:18 PM EDT us Generic External Data Provider LAB MICROBIOLOGY - GENERAL ORDERABLES Final Result Performing Organization Address [facility] Co de Phone Number [facility] [address] [place] [phone] * (ABNORMAL) SARS-CoV-2 RNA, Influenza A/B, and RSV RNA, Ql NAAT (01/23/2025 7:12 PM EDT) Influenza A PCR NEGATIVE Negative [facility] Influenza B PCR NEGATIVE Negative [facility] Resp Syncy Virus RNA Qual PCR NEGATIVE Negative [facility] SARS COV2 PCR POSITIVE(A) Negative [facility] Comment:All test results mus t be correlated with clinical findings.Negative results do not preclude SARS-CoV2, influenza Avirus, influenza B virus and/or RSV infectionand should not be used as the sole basis for treatment orother patient management decisions. Negative results must becombined with clinical observations, patient history, andepidemiological information.This test has not been evaluated for monitoring treatment ofinfection.This test has been authorized by the FDA under an EmergencyUse Authorization (EUA) for use by authorized laboratories.Testing performed on the [employer] GeneXpert utilizingreal-time RT-PCR.All SARS CoV2 and positive influenza A/B results arereported to [facility]. 01/23/2025 7:12 PM EDT 01/23/2025 7:18 PM EDT us Generic External Data Provider LAB MICROBIOLOGY - GENERAL ORDERABLES Final Result [facility] [address] [place] [phone] * XR Chest 2 Views (01/23/2025 6:51 PM EDT) Anatomical Region Laterality Modality Chest Radiographic Johana ging 01/23/2025 6:51 PM EDT Narrative 01/23/2025 6:53 PM EDT ? [facility] ?[address] ?[place] [address] ?XRay Report ? Signed ? Patient: Son Palmer,Zaida ?MR#: MM ?? [id number] ? : 2005 ?Acct:[id number] ? Age/Sex: 19 / F ?ADM Date: 04/02/25 ? Loc: HO.ED ? Attending Dr: ? Ordering Physician: Aneta Chen ?? Date of Service: 01/23/25 ?? Procedure(s): XR chest 2V ?? Accession Number(s): [id number] ? cc: [facility]; Aneta Chen ? CLINICAL HISTORY: SOB ? Chest Radiographs, 2 views ? Comparison: None ? Findings: ?? No cardiomegaly. ?? Normal mediastinal contours. ?? No pneumothorax. No opacity. No pleural effusion. ?? Normal upper abdomen. ?? No acute fracture. ? Impression: ?? No acute findings. ? This document has been electronically signed by: Debbie Murillo MD ?? on 01/23/2025 18:51:32 ? Dictated By: ?Debbie Causey MD ? Signed By: ?<Electronically signed by Debbie Causey MD in OV> ? 01/23/25 1852 ? DD/ 50 ? TD/TT: 01/23/251850 ? Glost Placer: ? Procedure Note Donnolanter, Image - 01/23/[address] [address] XRay Report Signed Patient: Zaida MelgarMR#: [id number] : 2005Acct:[id number] Age/Sex: 19 FADM Date: 01/23/25 Loc: HO.ED Attending Dr: Ordering Physician: Aneta Chen Date of Service: 01/23/25 Procedure(s): XR chest 2V Accession Number(s): [id number] cc: [facility]; Aneta Chen CLINICAL HISTORY: SOB Chest Radiographs, 2 views Comparison: None Findings: No cardiomegaly. Normal mediastinal contours. No pneumothorax. No opacity. No pleural effusion. Normal upper abdomen. No acute fracture. Impression: No acute findings. This document has been electronically signed by: Debbie Murillo MD on 01/23/2025 18:51:32 Dictated By: Debbie Causey MD Signed By: <Electronically signed by Debbie Causey MD in OV> 01/23/251851 DD/ 50 TD/TT: 01/23/251850 Glost Placer: [facility] External Provider IMG XR PROCEDURES Final Result * T-SPOT??.TB (12/31/2024 1:36 PM EDT) Pathologist [facility] T Spot TB Negative Negative [facility] Comment:A negative test resu lt does not exclude the possibilityof exposure to or infection with Mycobacteriumtuberculosis (M. tuberculosis). Patients with recentexposure to TB infected individuals exhibiting anegative T-SPOT.TB result should be considered forretesting within 6 weeks or if other relevant clinicalsymptoms indicate. Results from T-SPOT.TB testing mustbe used in conjunction with each individual'sepidemiological history, current medical status,and results of other diagnostic evaluations.The T-SPOT.TB test is qualitative and results arereported as positive, borderline, or negative, giventhat the test controls perform as expected. In linewith the Centers for Disease Control and Prevention's2010 recommendation to report quantitative measurementsalongside the qualitative result, the laboratoryprovides spot counts for informational purposes only.The T-SPOT.TB test should not be interpreted as aquantitative test. TS PANEL A 0 [facility] TS PANEL B 0 [facility] Negative Control Passed [facility] Positive Control Passed [facility] Comment:For additional infor mation, please refer tohttp://education.[employer]/faq/ZXD812(This link is being provided for informational/educational purposes only.)THIS TEST WAS PERFORMED AT:[id number] [place] [phone] BAINS MD,PHD 12/31/2024 1:36 PM EDT 12/31/2024 4:[address] [facility] BLOOD ORDERABLES Final Resu lt [facility] [address] [place] [phone] * Measles, Mumps, and Rubella (MMR) Antibodies??(IgG) Panel, Immune Status (12/31/2024 1:36 PM EDT) Mumps Virus IgG Antibody 196.00 AU/mL [facility] Comment:AU/mL Interpretation ------- <9.00 Not consistent with immunity9.00-10.99 Equivocal>10.99 Consistent with immunityThe presence of mumps IgG antibody suggests immunizationor past or current infection with mumps virus. Rubella IgG Antibody 1.41 Index [facility] Comment:Index Interpretation ----- <0.90 Not consistent with immunity 0.90-0.99 Equivocal > or = 1.00 Consistent with immunityThe presence of rubella IgG antibody suggestsimmunization or past or current infection withrubella virus.THIS TEST WAS PERFORMED AT:[id number] [place], [place] [phone] HURT MD Rubeola IgG (Measles) 223.00 AU/mL [facility] Comment:AU/mL Interpretation ----- <13.50 Not consistent with zkdoczxs33.50-16.49 Equivocal>16.49 Consistent with immunityThe presence of measles IgG suggests immunization orpast or current infection with measles virus.For additional information, please refer tohttp://education.Tears [employer] Life/faq/BYU248(This link is being provided for informational/educational purposes only.) Blood Venous blood specimen / Unknown 12/31/2024 1:36 PM EDT 12/31/2024 4:07 PM EDT us Joy Mancini EDUCATION COORDINATOR LAB BLOOD ORDERABLES Final Resu lt [facility] [address] [place] [phone] * US Pelvis Transvaginal (12/14/2024 3:47 PM EST) Anatomical Region Laterality Modality Pelvis Ultrasound 12/14/2024 3:47 PM EST Narrative 12/14/2024 4:45 PM EST ? [facility] ?[address] ?[place] [address] ? Ultrasound Report ? Signed ? Patient: Son Palmer,Zaida ?MR#: [id number] ?? [id number] ? : 2005 ?Acct:[id number] ? Age/Sex: 19 / F ?ADM Date: 12/14/24 ? Loc: HO.US ? Attending Dr: Franklin Darby CNM ? Ordering Physician: FRANKLIN DARBY CNM ?? Date of Service: 12/14/24 ?? Procedure(s): US pelvic and transvaginal ?? Accession Number(s): [id number] ? cc: FRANKLIN DARBY CNM ? EXAMINATION: [...] DD/ 1547 ? TD/TT: 12/14/24 1619 ? Glost Placer: ? Procedure Note Donotuseinterpreter, Image - 12/14/2024 [place] [address] Ultrasound Report Signed Patient: Zaida MelgarMR#: [id number] : 2005Acct:[id number] Age/Sex: Date: 12/14/24 Loc: HO.US Attending Dr: Franklin Darby CNM Ordering Physician: FRANKLIN DARBY CNM Date of Service: 12/14/24 Procedure(s): US pelvic and transvaginal Accession Number(s): [id number] cc: FRANKLIN DARBY CNM EXAMINATION: US PELVIS [...] Car Driver MD 12/14/2024 04:42 PM EST Dictated By: Car Driver MD Signed By: <Electronically signed by Car Driver MD in OV> 12/14/24 1642 DD/ 1547 TD/TT: 12/14/24 1619 Glost Placer: us Franklin Darby CN IMG US PROCEDURES Final R esult * Chlamydia/N. Gonorrhoeae RNA, TMA, Urogenitial (11/28/2024 10:25 AM EST) CT PCR NOT DETECTED Not Detect. [facility] Comment:A not detected test result does [...] psychologicalconsequences. NG PCR NOT DETECTED Not Detect. [facility] Comment:A not detected test result does [...] AM EST 11/28/2024 2:43 PM EST Narrative [facility] - 11/29/2024 4:53 AM EST Vaginal Franklin Darby CNM LAB MICROBIOLOGY - GENERA L ORDERABLES Final Result Performing Organization Address [facility] Co de Phone Number [facility] [address] [place] [address] [phone] * (ABNORMAL) Lipid Panel, Standard (01/11/2024 9:40 AM EDT) Triglycerides 189(H) <150 mg/dL [facility] Comment:Desirable Triglyceri de: less than 90 mg/dLBorderline High Triglyceride: 90-129 mg/dLHigh Triglyceride: greater than 130 mg/dL Cholesterol 242(H) <200 mg/dL [facility] Comment:Desirable Cholestero l: less than 170 mg/dLBorderline High Cholesterol: 170-199 mg/dLHigh Cholesterol: greater than 200 mg/dL LDL Cholesterol Calculated 156(H) <100 mg/dL [facility] Comment:Desirable LDL: less than 110 mg/dLBorderline LDL: 110-129 mg/dLHigh LDL: greater than or equal to 130 mg/dL HDL Cholesterol 49 >40 mg/dL [facility] Comment:Desirable HDL: great er than 45 mg/dLBorderline HDL: 40-45 mg/dLLow HDL: less than 40 mg/dL Note: This HDL assay may give artificially low results in patients with liver disease. Blood Venous blood specimen / Unknown 01/11/2024 9:40 AM EDT 01/11/2024 11:11 AM EDT us Joy Mancini EDUCATION COORDINATOR LAB BLOOD ORDERABLES Final Resu lt Performing Organization Address [facility]/ZIP Co de Phone Number [facility] [address] [place] [phone] * Hepatitis C Ab (05/13/2023 4:36 PM EDT) Hepatitis C Antibody Nonreactive Nonreactive [facility] Comment:Antibodies to HCV no t detected; does not exclude early acuteHCV infection. Blood 05/13/2023 4:36 PM EDT 05/13/2023 5:34 PM EDT Myesha [facility] LAB BLOOD ORDERABLES Final Res ult [facility] [address] [place] [phone] * HIV-1 RNA, Quantitative, Real-Time PCR (05/13/2023 4:36 PM EDT) Pathologist [facility] HIV RNA PCR Qn Copies NOT DETECTED NOT DETECTED copies/mL [facility] HIV RNA PCR Qn Log Copies NOT DETECTED NOT DETECTED [facility] Comment:Result Units: Log co pies/mLThis test was performed using Real-Time Polymerase ChainReaction.Reportable Range: 20 copies/mL to 10,000,000 copies/mL(1.30 log copies/mL to 7.00 log copies/mL).THIS TEST WAS PERFORMED AT:[facility] [place] [phone] HURT MD Blood Venous blood specimen / Unknown 05/13/2023 4:36 PM EDT 05/13/2023 5:34 PM EDT [facility] Final Res ult Performing Organization Address City/[facility]/ZIP Co de Phone Number [facility] [address] [place] [phone] from Last 3 Months or Most Recently Relevant to Health Maintenance Insurance [facility] STANDARD Care Teams Enrichment Teacher Relationship Specialty Start Date End Date Coco Wells NP [address] [place] [phone] PCP - General Family Medicine 06/26/24
--- OUTSIDE RECORDS SUMMARY | 2025-03-04 17:43 | XMS_ITS | Clinical Summary ---
Author Organization [facility] Address [address] [place] [address] Care Team Providers Care Human Resources Trainer Name Role Phone Unavailable Primary Care Provider [...] Date Last Done Comments Gonorrhea/Chlamydia Screening 2004 HPV Vaccines (1 - 3-dose series) 02/17/2019 Meningococcal B Vaccine (1 o f 2 - Standard) 2020 Annual Well Child Visit (3-2 1 years old) 09/26/2022 Depression Screening 09/26/2022 HIV Screening 09/26/2022 Hepatitis C Screening 09/26/2022 Social Influencers of Health Screening 09/26/2022 DTaP,Tdap,and Td Vaccines (1 - Tdap) 02/17/2023 Hepatitis B Vaccines (1 of 3 - 19+ 3-dose series) 02/17/2023 COVID-19 Vaccine ( - 2023-2 5 season) 2024 Cervical Cancer Screening: P ap Smear 02/17/2025 Influenza Vaccine (Season Ended) 2025 HIB Vaccines Aged Out No longer eligi [...] on patient's age to complete this topic Varicella Vaccines Aged Out No longer eligible based on patient's age to complete this topic
--- OUTSIDE RECORDS SUMMARY | 2025-03-04 17:43 | XMS_ITS | Encounter Summary ---
Author Organization [employer] Address [address] [facility] [address]t [place] [address] Care Team Providers Care Back Panel Padder Name Role Phone Haileeronnie Coco KNIGHT Primary Care Provider [phone] Reason for Visit * Reason Comments Gynecologic Exam Encounter Details Date Type Department Care Team ([facility] st Contact Info) Description 03/04/2025 11:00 AM EDT Office Visit [facility] [address] [place] [address] Rosmery Baumann CNM [address] [place] [address] Nexplanon removal (Primary Dx); Routine cervical smear; Tinea cruris Social History Tobacco Use Types Packs/Day Years [...] Sign Reading Time Taken Comments Blood Pressure 150/90 03/04/2025 11:07 AM EDT Pulse 118 03/04/2025 11:07 AM EDT asthma pump before appointment Temperature 36.8 ??C (98.2 ??F) 03/04/2025 1 1:07 AM EDT Respiratory Rate 20 03/04/2025 11:0 7 AM EDT Oxygen Saturation 99% 03/04/2025 11: 07 AM EDT Inhaled Oxygen Concentration - - Weight 93.2 kg (205 lb 6.4 oz) 03/04/2025 11:07 AM EDT Height 162.6 cm (5' 4 ) 03/04/2025 11:0 7 AM EDT Body Mass Index 35.26 03/04/2025 11:07 AM EDT documented in this encounter Progress Notes * Rosmery Baumann CNM - 03/04/2025 11:00 AM EDT Subjective Patient ID: Zaida Son is a 20 y.o. female who presents for Nexplanon removal Gonorrhea/Chlamydia neg 11/2024. Nexplanon inserted 10/2023. Would like Nexplanon removed today. Would like more predictable bleeding pattern. Not sexually active in the past 5 days. No change in partner. Notes itchy rash on inner thighs, improving, but would like this checked. Duefor initial pap, would like this today. Review of Systems HENT: Positive for sore throat. Respiratory: Positive for cough, shortness of breath and wheezing. Genitourinary: Negative for dyspareunia, dysuria, menstrual problem, pelvic pain, vaginal bleeding,vaginal discharge and vaginal pain. Skin: Positive for rash. Objective BP (!) 150/90 (BP Location: Left arm, Patient Position: Sitting, BP Cuff Size: Large adult) Pulse(!) 118 Comment: asthma pump before appointment Temp 98.2 ??F (36.8 ??C) (Temporal) Resp 20 Ht 5' 4 (1.626 m) Wt 205 lb 6.4 oz (93.2 kg) SpO2 99% BMI 35.26 kg/m?? Physical Exam Constitutional: Appearance: Normal appearance. Genitourinary: General: Normal vulva. Labia: Right: No rash, tenderness, lesion or injury. Left: No rash, tenderness, lesion or injury. Vagina: Normal. No signs of injury and foreign body. No vaginal discharge, erythema, tenderness, bleeding, lesions or prolapsed vaginal otero. Cervix: Normal. No cervical motion tenderness, discharge, friability, lesion, erythema, cervical bleeding or eversion. Uterus: Normal. Not enlarged and not tender. Adnexa: Right adnexa normal and left adnexa normal. Right: No mass, tenderness or fullness. Left: No mass, tenderness or fullness. Comments: Scaly rash inner thighs bilaterally, consistent with tinea. Scant menses in vagina Skin: Comments: Nexplanon palpable in left arm prior to removal Neurological: Mental Status: She is alert. Psychiatric: Mood and Affect: Mood normal. Behavior: Behavior normal. Assessment/Plan Diagnoses and all orders for this visit: Nexplanon removal Subdermal Contraceptive Implant Removal Date of Insertion: 2023 Date of Removal: March 04, 2025 Information related to removal of the implant: Reason(s) for removal: Irregular bleeding Was implant palpable before removal? Yes Procedure Time Out Documentation Time out performed Procedure: Implant identified. Left upper arm prepped with Betadinex3. 2% lidocaine 2ml injected at planned incision site. A small incision was performed with an 11 blade scalpel at the distal end of implant. The implant was removed intact. The implant was inspected and found to be intact and complete. Steri strips and a pressure dressing were applied to the site. After removal instructions were given and verbally reviewed with the patient who acknowledged understanding. Difficulties with the implant removal procedure? no Discussed control options. BP elevated today, and at previous appointment. Would like oral contraceptive pill for now. Slynd sent in. Reviewed side effects and danger signs. BP 1 month. If improved, might be interested in vaginal ring. Patch less effective at her weight. Could also consider IUD. Routine cervical smear - Pap Smear Initial pap today. Reviewed indications for screening and usual followup. Will contact with results. Repeat 3y if normal. Reviewed that minor cellular changes are common, and if these are noted, we will repeat pap in 1y. Tinea cruris For Lotrimin as prescribed. Followup with PCP if symptoms persist after 4 weeks or worsen prior to that. Other orders - Drospirenone (Slynd) 4 MG tablet; Take 1 tablet by mouth Once per day. - clotrimazole (Lotrimin) 1 % cream; Apply topically 2 times daily for 28 days. Notes URI symptoms, used inhaler just prior to visit with minimal improvement in symptoms. Normal 02 sat. Will go to [facility]. documented in this encounter Plan of Treatment Upcoming Encounters Date Type Department Care Team (Late st Contact Info) Description 04/15/2025 1:00 PM EDT Office Visit [facility] [address] [place] [phone] Rosmery Baumann CNM [address] [place] [address] Scheduled Orders Name Type Priority Associated Diagnoses Orde r Schedule Pap Smear Pathology and Cytology Routine Routine cervical smear Ordered: 03/04/2025 documented as of this encounter Visit Diagnoses Diagnosis Nexplanon removal- Primary Routine cervical smear Screening for malignant neoplasm of the cervix Tinea cruris Dermatophytosis of groin and perianal area documented in this encounter Additional Health Concerns Assessment Noted Time PHQ-9 Depression Total Score: 2 03/04/20 25 1:16 PM EDT documented as of this encounter Care Teams Back Panel Padder Relationship Specialty Start Date End Date Coco Wells NP [address] [place] [address] PCP - General Family Medicine 06/26/24 documented as of this encounter
--- OUTSIDE RECORDS SUMMARY | 2025-03-04 17:43 | XMS_ITS | Encounter Summary ---
Author Organization [employer] Address [address] [facility] [address] [place] [address] Care Team Providers Care Vehicle Service Attendant Name Role Phone HaileeCoco trujillo EUGENE Primary Care Provider [phone] Encounter Details Date Type Department Care Team ([facility] st Contact Info) Description 03/04/2025 1:00 PM EDT Office Visit [facility] [address] [place] [address] [phone] Melanie Garcia MD [address] [place] [address] Moderate persistent asthma with exacerbation (Primary Dx); Viral URI; Dietary counseling; Exercise counseling; Class 1 obesity without serious comorbidity with body mass index (BMI) of 34.0 to 34.9 in adult, unspecified obesity type Social History Tobacco Use Types Packs/Day Years [...] ??F) 03/04/2025 11:49 AM EDT Respiratory Rate - - Oxygen Saturation 99% 03/04/2025 11:49 AM EDT Inhaled Oxygen Concentration - - Weight 93 kg (205 lb) 03/04/2025 11:49 AM EDT Height - - Body Mass Index 35.19 03/04/2025 11:07 AM EDT documented in this encounter Progress Notes * Cristel Hernandez RN - 03/04/2025 1:20 PM EDT Pt presents to Walk In reporting two days ago had throat discomfort and nasal congestion then changed to SOB, asthma, non-productive cough(feels like phlegm but nothing comes up) x 2 days. No other s/s reported at time of triage. Pt reports she last took her inhaler around 1000 and just came down from Nexplanon removal. LS CTA. No respiratory distress noted/reported at time of triage. Pt advised on estimated wait time and to inform Field Representative/Health Education staff to notify nurse of any changes while awaiting provider visit. Pt verbalized understanding and in agreement. Pt awaiting provider visit. * Melanie Garcia MD - 03/04/2025 1:00 PM EDT SUBJECTIVE: Zaida Son is a 20 y.o. year old female who presents for acute visit. Denies recent illness, ER visit, or hospitalization. Acute Concerns: Pt presents to Walk In reporting two days ago had throat discomfort and nasal congestion then changed to SOB, asthma, non-productive cough(feels like phlegm but nothing comes up) x 2 days. No other s/s reported at time of triage. Pt reports she last took her inhaler around 1000 and just came down from Nexplanon removal. LS CTA. Asthma as a younger kid, had multiple episodes requiring steroid On prn FERDINAND therapy now Last exacerbation 01/24/25 Triggers: URI, allergies Patient Active Problem List Diagnosis Moderate persistent asthma with acute exacerbation Dizziness Frequent headaches control counseling Asthma exacerbation Class 1 obesity without serious comorbidity with body mass index (BMI) of 34.0 to 34.9 in adult History reviewed. No pertinent surgical history. Family History Problem Relation Name Age of Onset Hypertension Maternal Grandmother Hypertension Maternal Grandfather Social History Social History Narrative Not on file Review of Systems Constitutional: Negative. HENT: Negative. Respiratory: Positive for cough, chest tightness and shortness of breath. Cardiovascular: Negative. Gastrointestinal: Negative. Musculoskeletal: Negative. OBJECTIVE: Vitals: 03/04/25 1149 03/04/25 1252 03/04/25 1321 BP: (!) 146/95 (!) 155/93 138/78 BP Location: Right arm Right arm Patient Position: Sitting Sitting BP Cuff Size: Adult Adult Pulse: 99 (!) 113 Temp: 98 ??F (36.7 ??C) TempSrc: Temporal SpO2: 99% Weight: 205 lb (93 kg) Physical Exam Vitals and nursing note reviewed. Constitutional: Appearance: Normal appearance. HENT: Head: Normocephalic and atraumatic. Cardiovascular: Rate and Rhythm: Normal rate and regular rhythm. Pulses: Normal pulses. Heart sounds: Normal heart sounds. Pulmonary: Effort: Pulmonary effort is normal. No respiratory distress. Breath sounds: Normal breath sounds. No stridor. No wheezing. Skin: General: Skin is warm and dry. Neurological: General: No focal deficit present. Mental Status: She is alert and oriented to person, place, and time. Psychiatric: Mood and Affect: Mood normal. Behavior: Behavior normal. ASSESSMENT/PLAN Problem List Items Addressed This Visit Asthma exacerbation - Primary Class 1 obesity without serious comorbidity with body mass index (BMI) of 34.0 to 34.9 in adult Other Visit Diagnoses Viral URI Relevant Orders POCT Rapid COVID Ag (Completed) Influenza A (ID NOW Rapid Molecular) (Completed) Influenza B (ID NOW Rapid Molecular) (Completed) Dietary counseling Exercise counseling Follow Up: per PCP recall months or sooner prn No Known Allergies Current Outpatient Medications: albuterol 108 (90 Base) MCG/ACT inhaler, Inhale 2 puffs every 6 (six) hours if needed for wheezing., Disp: 18 g, Rfl: 2 Banophen 25 MG capsule, TAKE 1 CAPSULE BY MOUTH THREE TIMES A DAY NEEDED FOR ITCHING FOR 5 DAYS,Disp: , Rfl: budesonide-formoterol (Symbicort) 160-4.5 MCG/ACT inhaler, Inhale 2 puffs in the morning and at bedtime. Rinse mouth with water after use to reduce aftertaste and incidence of candidiasis. Do not swallow., Disp: 1 each, Rfl: 11 cetirizine (ZyrTEC) 10 MG tablet, Take 1 tablet (10 mg) by mouth Once per day., Disp: 90 tablet, Rfl: 3 clotrimazole (Lotrimin) 1 % cream, Apply topically 2 times daily for 28 days., Disp: 30 g, Rfl: 2 Diclofenac Sodium 1 % gel, APPLY 4 G TOPICALLY 2 TIMES DAILY., Disp: , Rfl: Drospirenone (Slynd) 4 MG tablet, Take 1 tablet by mouth Once per day., Disp: 28 tablet, Rfl: 11 fluticasone-salmeterol (Advair) 115-21 MCG/ACT inhaler, Inhale 2 puffs in the morning and at bedtime. Rinse mouth with water after use to reduce aftertaste and incidence of candidiasis. Do not swallow., Disp: 12 g, Rfl: 11 ibuprofen 800 MG tablet, 1 tablet every 8 hours x 7 days. Take with food, Disp: 21 tablet, Rfl: 0 montelukast (Singulair) 10 MG tablet, Take 1 tablet (10 mg) by mouth in the evening., Disp: 30 tablet, Rfl: 11 predniSONE (Deltasone) 20 MG tablet, Take 1 tablet (20 mg) by mouth Once per day for 5 days., Disp:5 tablet, Rfl: 0 Tamazight Translation: Patient is bilingual and declines translation services documented in this encounter Plan of Treatment Upcoming Encounters Date Type Department Care Team (Late st Contact Info) Description 04/15/2025 1:00 PM EDT Office Visit [facility] [address] [place], [place] [phone] Rosmery Baumann CNM [address] [place], [place] [phone] documented as of this encounter Procedures Procedure Name Priority Date/Time Associated Diagnosis Comments POCT INFLUENZA B (ID NOW RAPID MOLECULAR) Routine 03/04/2025 1:05 PM EDT Viral URI POCT INFLUENZA A (ID NOW RAPID MOLECULAR) Routine 03/04/2025 1:05 PM EDT Viral URI POCT RAPID COVID ANTIGEN Routine 03/04/2025 1:05 PM EDT Viral URI documented in this encounter Results * Influenza B (ID NOW Rapid Molecular) (03/04/2025 1:05 PM EDT) [facility] Influenza B Negative Negative, Indeterminate [facility] Swab 03/04/2025 1:05 PM EDT us Melanie Garcia MD POINT OF CARE TEST ENTER/EDIT ORDERABLES Final Result [facility] [address] [place] [phone] * Influenza A (ID NOW Rapid Molecular) (03/04/2025 1:05 PM EDT) Influenza A Negative Negative, Indeterminate [facility] Swab 03/04/2025 1:05 PM EDT Melanie Garcia MD POINT OF CARE TEST ENTER/EDIT ORDERABLES Final Result Performing Organization Address [facility]/ZIP Co de Phone Number [facility] [address] [place] [address] [phone] * POCT Rapid COVID Ag (03/04/2025 1:05 PM EDT) Rapid COVID Ag Negative [facility] Swab 03/04/2025 1:05 PM EDT Melanie Garcia MD POINT OF CARE TEST ENTER/EDIT ORDERABLES Final Result Performing Organization Address [facility] de Phone Number [facility] [address] [place] [address] [phone] documented in this encounter Visit Diagnoses Diagnosis Moderate persistent asthma with exacerbation- Primary Unspecified asthma, with exacerbation Viral URI Acute upper respiratory infections of unspecified site Dietary counseling Dietary surveillance and counseling Exercise counseling Class 1 obesity without serious comorbidity with body mass index (BMI) of 34.0 to 34.9 in adult, unspecified obesity type documented in this encounter Additional Health Concerns Assessment Noted Time PHQ-9 Depression Total Score: 2 03/04/20 25 1:16 PM EDT documented as of this encounter Care Teams Vehicle Service Attendant Relationship Specialty Start Date End Date Coco Wells NP [address] [place] [phone] PCP - General Family Medicine 06/26/24 documented as of this encounter
--- OUTSIDE RECORDS SUMMARY | 2025-03-04 17:43 | XMS_ITS | Encounter Summary ---
Author Organization [employer] Address [address] [facility] [address]t [place] [address] Care Team Providers Care Peripheral Equipment Operator Name Role Phone Joy Mancini Primary Care Provider [phone] Coco Wells NP Primary Care Provider [phone] Encounter Details Date Type Department Care Team (Late st Contact Info) Description 10/31/2023 Orders Only [facility] [address] [place] [address] Joy Mancini FNP [address] [place] [address] Dietary counseling (Primary Dx) Social History Tobacco [...] Description 04/15/2025 1:00 PM EDT Office Visit [facility] [address] [place], [place] [phone] Rosmery Baumann CNM [address] [place] [address] documented as of this encounter Procedures Procedure Name Priority Date/Time Associated Diagnosis Comments LIPID PANEL, STANDARD Routine 01/11/2024 9:40 AM EDT Dietary counseling documented in this encounter Results * (ABNORMAL) Lipid Panel, Standard (01/11/2024 9:40 AM EDT) Triglycerides 189(H) <150 mg/dL [facility] Comment:Desirable Triglyceri de: less than 90 mg/dLBorderline High Triglyceride: 90-129 mg/dLHigh Triglyceride: greater than 130 mg/dL Cholesterol 242(H) <200 mg/dL [facility] Comment:Desirable Cholestero l: less than 170 mg/dLBorderline High Cholesterol: 170-199 mg/dLHigh Cholesterol: greater than 200 mg/dL LDL Cholesterol Calculated 156(H) <100 mg/dL [facility] Comment:Desirable LDL: less than 110 mg/dLBorderline LDL: 110-129 mg/dLHigh LDL: greater than or equal to 130 mg/dL HDL Cholesterol 49 >40 mg/dL [facility] Comment:Desirable HDL: great er than 45 mg/dLBorderline HDL: 40-45 mg/dLLow HDL: less than 40 mg/dL Note: This HDL assay may give artificially low results in patients with liver disease. Blood Venous blood specimen / Unknown 01/11/2024 9:40 AM EDT 01/11/2024 11:11 AM EDT Joy CANELA LAB BLOOD ORDERABLES Final Resu lt [facility] [address] [place] [phone] documented in this encounter Visit Diagnoses Diagnosis Dietary counseling- Primary Dietary surveillance and counseling documented in this encounter Additional Health Concerns Assessment Noted Time PHQ-9 Depression Total Score: 3 10/28/19 24 3:12 PM EST documented as of this encounter Care Teams Peripheral Equipment Operator Relationship Specialty Start Date End Date Joy Mancini FNP [address] [place] [address] PCP - General Family Medicine 04/21/23 06/25/24 Coco Wells NP [address] [place] [address] PCP - General Family Medicine 06/26/24 documented as of this encounter
--- OUTSIDE RECORDS SUMMARY | 2025-03-04 17:43 | XMS_ITS | Encounter Summary ---
Author Organization [employer] Address [address] [facility] [address] [place] [address] Care Team Providers Care Finishing Manager Name Role Phone Coco Wells EUGENE Primary Care Provider [phone] Encounter Details Date Type Department Care Team (Latest Contact Info) Description 03/04/2025 Travel Social History Tobacco Use Types Packs/Day [...] Description 04/15/2025 1:00 PM EDT Office Visit [facility] [address] [place] [address] Rosmery Baumann CNM [address] [place] [address] documented as of this encounter Visit Diagnoses Not on filedocumented in this encounter Additional Health Concerns Assessment Noted Time PHQ-9 Depression Total Score: 2 03/04/20 25 1:16 PM EDT documented as of this encounter Care Teams Finishing Manager Relationship Specialty Start Date End Date Coco Wells NP [address] [place] [address] PCP - General Family Medicine 06/26/24 documented as of this encounter
== END 2025-03-04 17:42 | disposition home or self-care (01) ==
LOC: HO.HHCLNP 17:41
PROVIDERS: Visit Provider Advanced Practice Midwife
DX: Z12.4 Encounter for screening for malignant neoplasm of cervix (principal)
CPT/HCPCS: 88175